=== PATIENT | male | born 1955 | race Caucasian/White ===

== ENCOUNTER 2021-01-20 07:50 | Outpatient (REF) | payer MEDICARE, SELFPAY ==
--- NOTE | 2021-01-20 13:26 | MHC.AU.AHA ---
Adult Audiological Evaluation Date of Visit: 01/20/21 Respite Worker Used: Not Applicable Reason for Appointment: Audiologic re-evaluation to monitor Jason's asymmetric high frequency hearing loss and determine if hearing thresholds have decreased. Jason was fit with binaural hearing aids by [facility] in 2016 and may be interested in obtaining new hearing aids. Medical consultation with an Securities Research Analyst was advised in 2019 when last tested at this office. Jason notes due to COVID-19, he had a Telemedicine appointment with Dr. Champ Colunga, but further testing and recommendations could not be provided at that time. Previous Hearing Test Results: 08/07/2019 [facility] Left ear - Normal hearing at 250 and 500 Hz, dropping to a moderately-severe to severe high frequency sensorineural hearing loss with 64% speech understanding at 75 dB HL. Right ear - Normal hearing at 250 and 500 Hz, precipitously dropping to a profound high frequency sensorineural hearing loss with 32% speech discrimination at 75 dB HL. Ear History: Bothersome Tinnitus/Ringing/Noises in Ears: Right Ear Ear used on the phone: Left Ear History of occupational noise exposure?: No: Recreationally plays drums in a band. 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 of the neck, Anemia, Aortic Valve Stenosis, Atrioventricular Block, Pacemaker Medication List: Multivitamin and Fish Oil Hearing Instrument History- Right Ear: Grid Maker: OtPhotoTLC Model: OPN 1 mini RITE Serial Number: [id number] Battery Size: 312 Repair Warranty: Dispensed By: [facility] Date of Fittin Hearing Instrument History- Left Ear: Grid Maker: Oticon Model: OPN 1 mini RITE Serial Number: [id number] Battery Size: 312 Warranty: Dispensed By: [facility] Date of Fittin Otoscopy: Right Ear: Unremarkable Left Ear: Unremarkable Tympanometry: Tympanometry not performed today as previous test results have consistently indicated normal middle ear function Hearing Evaluation: Transducer(s) Used: Insert Earphones Bone Conduction Method: Conventional Audiometry Stimuli Used: Pure Tones Right Ear: Description of Hearing: Normal hearing thresholds at 250 and 500 Hz, precipitously dropping to a profound high frequency sensorineural hearing loss Left Ear: Description of Hearing: Normal hearing thresholds at 250 and 500 Hz, dropping to a moderately-severe to severe high frequency sensorineural hearing loss Speech Recognition Threshold (SRT): Method Used: Monitored Live Voice Stimuli Used: Spondee Words Right Ear: 30 dB HL Left Ear: 25 dB HL Word Discrimination: Method: Recorded Lists Word Lists Used: NU-6 Right Ear: 52% at 75 dB HL Left Ear: 56% at 75 dB HL Comparison: Compared to most recent evaluation: Left ear thresholds overall are stable. Right ear thresholds at 750-1500 Hz have decreased 10-20 dB. Recommendations: - It is advised Jason schedule an in-office appointment with Dr. Colunga as the hearing thresholds for the right ear continue to decrease. - Hearing protection should be used when around loud noise. - Hearing aid maintenance performed today. - Hearing aid(s) reprogrammed with updated test results. - Discussed the newest Oticon hearing aid technology. If he would like to pursue new hearing aids from this office within the next six months, Jason may schedule a Hearing Aid Evaluation - Audiological re-evaluation in one year. Will send a reminder card. Diagnosis: Primary Diagnosis: H90.3 Bilateral Sensorineural Hearing Loss Secondary Diagnosis: H93.11 Tinnitus, Right Ear Services Performed: Comprehensive Audiological Evaluation (CPT 58270) Signature: Provider: Yamila Guthrie, [facility]
== END 2021-01-20 07:51 | disposition home or self-care (01) ==
LOC: HO.SH 07:50
PROVIDERS: Visit Provider Family Medicine
DX: H90.3 Sensorineural hearing loss, bilateral (principal); H93.11 Tinnitus, right ear
CPT/HCPCS: 92557

== ENCOUNTER 2021-01-27 08:23 | Outpatient (REF) | payer SELFPAY | END 2021-01-27 08:24 | disposition home or self-care (01) | LOC: HO.HAP 08:23 | PROVIDERS: Visit Provider Family Medicine | DX: Z13.89 Encounter for screening for other disorder (principal) ==

== ENCOUNTER 2021-04-15 15:20 | Outpatient (REF) | payer SELFPAY | END 2021-04-15 15:21 | disposition home or self-care (01) | LOC: HO.HAP 15:20 | PROVIDERS: Visit Provider Family Medicine | DX: Z13.89 Encounter for screening for other disorder (principal) ==

== ENCOUNTER 2021-04-20 13:21 | Outpatient (REF) | payer SELFPAY | END 2021-04-20 13:22 | disposition home or self-care (01) | LOC: HO.HAP 13:21 | PROVIDERS: Visit Provider Family Medicine | DX: Z13.89 Encounter for screening for other disorder (principal) ==

== ENCOUNTER 2021-08-03 10:18 | Outpatient (REF) | payer SELFPAY ==
--- NOTE | 2021-08-03 14:56 | MHC.AU.HFU ---
Hearing Instrument Follow-Up- Binaural Date of Visit: 08/03/21 Right Ear: Mission Coordinator: Oticon Model: More 1 miniRITE-T Serial Number: [id number] Repair Warranty: 06/18/2024 Loss and Damage Warranty: 06/18/2024 Battery Size: 312 Front Office Java Developer: 85 gain Type of Dome: open 10 mm Type of Wax Guard: Prowax minifit Dispensed By: [facility] Date of Fitting: Per Oticon, purchased 05/19/2021 Left Ear: Mission Coordinator: Oticon Model: More 1 miniRITE-T Serial Number: [id number] Repair Warranty: 06/18/2024 Loss and Damage Warranty: 06/18/2024 Battery Size: 312 Front Office Java Developer: 85 gain Type of Dome: 10 mm open Type of Wax Guard: Prowax minifit Dispensed By: [facility] Date of Fitting: Per Oticon, purchased 05/19/2021 Follow-Up Summary: Mr. Barnett has recently obtained new hearing aids at [facility], which he notes were covered in full by his health insurance company. He is transferring care of these new hearing aids to our clinic today. Hearing aid settings were saved in [place]. Increased gain for the speech frequencies 3761-5070 Hz by 3 steps. Re-arranged his programs, moving the ycdour-wp-nzlas program to the second position and the lecture program to the fourth position. He notes that he still has some trouble with background noise. In the More Sound Intelligence screen, changed the simple environment to one of the difficult settings and increased the Neural Noise Suppression for Difficulty environments to 10 dB. He reported good sound quality. Diagnosis Code(s): Primary Diagnosis: H90.3 Bilateral Sensorineural Hearing Loss Secondary Diagnosis: H93.13 Tinnitus, Bilateral Signature: Provider: Snow aFrnsworth, Yamila, CCC-A
== END 2021-08-03 10:19 | disposition home or self-care (01) ==
LOC: HO.HAP 10:18
PROVIDERS: Visit Provider Family Medicine
DX: Z46.1 Encounter for fitting and adjustment of hearing aid (principal); H90.3 Sensorineural hearing loss, bilateral; H93.13 Tinnitus, bilateral
CPT/HCPCS: V5011

== ENCOUNTER 2021-12-18 09:21 | Outpatient (REF) | payer SELFPAY ==
--- NOTE | 2021-12-18 12:10 | MHC.AU.HFU ---
Hearing Instrument Follow-Up- Binaural Date of Visit: 12/18/21 Right Ear: Security Incident Response Engineer: Oticon Model: More 1 miniRITE-T Serial Number: [id number] Repair Warranty: 06/18/2024 Loss and Damage Warranty: 06/18/2024 Battery Size: 312 Color: Silver Kaur Tiler: 85 gain Type of Dome: open 10 mm Type of Wax Guard: mini FIT ProWax Dispensed By: [facility] Date of Fitting: Per Oticon, purchased 05/19/2021 Left Ear: Security Incident Response Engineer: Oticon Model: More 1 miniRITE-T Serial Number: [id number] Repair Warranty: 06/18/2024 Loss and Damage Warranty: 06/18/2024 Battery Size: 312 Color: Silver Kaur Tiler: 85 gain Type of Dome: 10 mm open Type of Wax Guard: mini FIT ProWax Dispensed By: [facility] Date of Fitting: Per Oticon, purchased 05/19/2021 Follow-Up Summary: Patient was seen for hearing aid maintenance. Cleaned aids, vacuumed microphones, replaced domes, wax guards, and retention wires. Aids are in good working condition. Performed firmware update. Patient states that he is interested in demoing some different brands of hearing aids. He does a lot of research into hearing aids and is very techy, so is interested in a brand that offers more out of their dannielle, such as Jace. Also advised that he may like ReSound as well. He was welcomed to schedule a HAE to get set up with some demos if he'd like. Recommendations: Hearing instrument maintenance in 6 months, or sooner if needed. Please contact our clinic with any questions or concerns. Signature: Provider: Yamila Tran, CCC-A
== END 2021-12-18 09:22 | disposition home or self-care (01) ==
LOC: HO.HAP 09:21
PROVIDERS: Visit Provider Family Medicine
DX: Z13.89 Encounter for screening for other disorder (principal)

== ENCOUNTER 2022-02-05 14:24 | Outpatient (REF) | payer SELFPAY | END 2022-02-05 14:25 | disposition home or self-care (01) | LOC: HO.HAP 14:24 | PROVIDERS: Visit Provider Family Medicine | DX: Z13.89 Encounter for screening for other disorder (principal) ==

== ENCOUNTER 2022-03-30 07:33 | Day surgery (SDC) | payer MEDICARE, SELFPAY ==
[2022-03-24 20:28] VITALS: BMI 27.1
[2022-03-30 08:03] VITALS: BP 153/75; PULSE 71; RESP 16; TEMP 36.2; O2SAT 100
[2022-03-30] MEDS: Lactated Ringers 1,000 ML 50 ML IVCONT (08:16)
--- NOTE | 2022-03-30 09:03 | P.CONAN_ITS ---
[facility] Past Medical History Medical History Aortic stenosis BPH with elevated PSA Hearing loss Moderate mitral stenosis Non-Hodgkin lymphoma Pacemaker Sick sinus syndrome Surgical History Surgical History H/O splenectomy History of colonoscopy History of laparotomy History of lateral meniscus repair of left knee History of prostate surgery S/P left rotator cuff repair S/P placement of cardiac pacemaker History of Problems with Anesthesia: No Social History Social History Patient Tobacco Use Status: Never used Tobacco Use of substances other than those prescribed or required for medical reasons: Yes Substance Use Frequency: Monthly Are you DNR?: No Advance Directives: No Advance Directives Information Provided: Yes Advance Directives on File: No Recently lost weight without trying: No Nutrition Risks: No Nutritional Risk Meds Allergies Allergy/AdvReac Type Severity Reaction Status Date / Time No Known Allergies Allergy Unverified 03/20/20 16:44 [No Known Allergies*] Home Medications Medication Instructions Recorded Confirmed Last Taken Type multivitamin 1 tab PO DAILY 03/24/22 03/24/22 Unknown History omega 3-odi-qxj-fish oil 1,000 mg 1 cap PO DAILY 03/24/22 03/24/22 Unknown History (120 mg-180 mg) capsule (Fish Oil) saw palm 160 mg-vit E 100 1 tab PO DAILY 03/24/22 03/24/22 Unknown History unit-selen 100 ckg-olyu-emuojd-pygeum tablet (Prostate Health) Exam Exam Date and Time: March 30, 2022902 Height,Weight and Vital Signs: Height 5 ft 11 in Weight 88.451 kg Last Vital Signs Temp 97.1 F 03/30/22 08:03 Pulse 71 03/30/22 08:03 Resp 16 03/30/22 08:03 BP 153/75 H 03/30/22 08:03 Pulse Ox 100 03/30/22 08:03 O2 Del Method 03/30/22 08:03 Airway Mallampati Class: III TM Dist: >3cm Neck ROM: Full Loose/Missing/Broken Teeth: No Heart: RRR Lungs: CTA Assessment and Plan Assessment Anesthesia Assessment: Anesthesia Plan Discussed and Chart Reviewed Final Anesthetic Review History of Problems with Anesthesia: No NPO: Yes ASA Class: III Final Preanesthetic Review: Meds/Allgs Chart Reviewed, Consent Obtained/Reviewed and Anes Risks/Benef Reviewed Patient Risk: Intermediate Procedure Risk: Low Anesthetic Plan Anesthetic Plan: MAC: Disposition: Standard PACU
--- NOTE | 2022-03-30 09:12 | MHC.SHP ---
Pre-Procedural Eval Section A Date of Service: 03/30/22 The patient is an INPATIENT: No Changes since office visit: No Cold of Flu in the past 2 weeks, No New Medical Problems, No Changes in Medication and No Patient answered all questions The History & Physical has been completed within 30 days and I have reviewed it.: Yes Section B Chief Complaint: screening Allergies: Allergies Allergy/AdvReac Type Severity Reaction Status Date / Time No Known Allergies Allergy Unverified 03/20/20 16:44 [No Known Allergies*] Plan I have reviewed the history and physical and performed a pertinent physical examination on my patient. No changes have occurred unless specified.
--- NOTE | 2022-03-30 09:46 | PM.OP ---
Brief Operative Note Date of Service: 03/30/22 Pre-op diagnosis: screening Post-op diagnosis: same Procedure: colonoscopy Surgeon: Khari Maldonado Anesthesia: MAC Was an Chief Data Officer used for this Procedure?: No Estimated blood loss (mL): 5 Pathology: other Condition: stable Disposition: PACU
[2022-03-30 09:50] VITALS: BP 106/60; PULSE 76; RESP 16; TEMP 36.6; O2SAT 98
[2022-03-30 10:05] VITALS: BP 117/72; PULSE 64; RESP 16; TEMP 36.6; O2SAT 99
--- NOTE | 2022-03-30 10:09 | OP_ITS ---
SURGEON: Khari Maldonado MD INDICATIONS: Colon cancer screening and prior history of adenomatous colon polyps. PREOPERATIVE DIAGNOSIS: POSTOPERATIVE DIAGNOSIS: PROCEDURE PERFORMED: Colonoscopy to the terminal ileum with biopsy and snare polypectomy. ESTIMATED BLOOD LOSS: COMPLICATIONS: ANESTHESIA: Monitored anesthesia care. ASSISTANTS: SPECIMENS: DESCRIPTION OF PROCEDURE: DATE: 03/30/22 History and physical performed. The risks and benefits of the procedure were explained to the patient. Informed consent was obtained. The patient was placed in the left lateral decubitus position. A digital rectal exam was performed and was found to be normal. The Olympus pediatric video colonoscope was introduced into the rectum and advanced to the cecum without difficulty. The cecum was identified by transillumination, palpation, and identification of the ileocecal valve. Examination was performed. The scope was removed. He tolerated the procedure well and was returned to recovery area in stable condition. FINDINGS: The terminal ileum was examined and appeared normal. The visualized colonic mucosa was within normal limits without evidence of masses or ulcers. The quality of the prep was good. Two polyps were identified in the cecum was a less than 5 mm polyp, which was removed with biopsy forceps. At 80 cm was an 8 mm polyp, which was removed with a hot snare and recovered via suction. No other polyps were identified. Retroflexed examination showed moderate-sized internal hemorrhoids. IMPRESSION: Colon polyps. RECOMMENDATION: Follow up the biopsy results. MD KEYLA Borrero/MARCY / [id number] MTDD
== END 2022-03-30 10:29 | disposition home or self-care (01) ==
PROVIDERS: PCP Pediatrics; Visit Provider Internal Medicine Gastroenterology
PROC: 0DJD8ZZ Inspection of Lower Intestinal Tract, Via Natural or Artificial Opening Endoscopic (ICD-10-PCS; CPT 45378; principal; 2022-03-30 08:50)
DX: Z12.11 Encounter for screening for malignant neoplasm of colon (principal); Z86.010 Personal history of colon polyps; K63.5 Polyp of colon; K64.8 Other hemorrhoids; C85.90 Non-Hodgkin lymphoma, unspecified, unspecified site; Z92.3 Personal history of irradiation; Z90.81 Acquired absence of spleen; H90.5 Unspecified sensorineural hearing loss; N40.0 Benign prostatic hyperplasia without lower urinary tract symptoms; R97.20 Elevated prostate specific antigen [PSA]; I35.0 Nonrheumatic aortic (valve) stenosis; Z95.0 Presence of cardiac pacemaker; Z79.899 Other long term (current) drug therapy
CPT/HCPCS: 45385; 45380; 88305

== ENCOUNTER 2022-04-23 13:47 | Outpatient (REF) | payer SELFPAY ==
--- NOTE | 2022-04-23 15:50 | MHC.AU.HFU ---
Hearing Instrument Follow-Up- Binaural Date of Visit: 04/23/22 Traffic Rate Analyst Used: Right Ear: Oticon More 1 miniRITE-T SN: [id number] Color: Silver Kaur Repair Warranty: 06/18/2024 Loss and Damage Warranty: 06/18/2024 Battery Size: 312 Casket Assembler Metal: 85 gain Type of Mold: 10mm open dome Type of Wax Guard: miniFit ProWax Dispensed By: [facility] Date of Fitting: Per Oticon, purchased 05/19/2021 Left Ear: Oticon More 1 miniRITE-T SN: [id number] Color: Silver Kaur Repair Warranty: 06/18/2024 Loss and Damage Warranty: 06/18/2024 Battery Size: 312 Casket Assembler Metal: 85 gain Type of Mold: 10mm open dome Type of Wax Guard: miniFit ProWax Dispensed By: [facility] Date of Fitting: Per Oticon, purchased 05/19/2021 Follow-Up Summary: Jason returned to discuss his trial with [employer] Evolv AI 2400 LUIS ALFREDO hearing aids. He reported that he loved the Jace hearing aids, especially compared to his current Oticon devices. He preferred the overall sound quality, noise management, and phone dannielle functionality. He returned the loaners today and was hoping to trial Phonak's newest hearing aid; however, do not have Audeo Lumity demos in stock at this time. Jason reported that his insurance is changing and he is planning to purchase new hearing aids in the near future. Advised need for updated hearing test. He also wanted his Oticon hearing aids adjusted in the meantime as he reported loud sounds (e.g., ambulance siren, truck rumbling) are too loud. Increased compression ratios between moderate and loud sounds. Explained bqu-wou-kygezrm; however, Jason reported he was under the impression that the mmingupo-xe-waoy fee covered all services. Advised courtesy programming changes today; however, future appointments will incur fee. Recommendations: Please contact our clinic with any questions or concerns. Jason will obtain doctor's order for updated audiological evaluation. Following the hearing test, when he is ready to purchase new hearing aids, he will schedule an appointment for a hearing aid consultation to demo Phonak Audeo Lumity devices and make a decision between new Jace or Phonak hearing aids. Diagnosis Code(s):Primary Diagnosis: H90.3 Bilateral Sensorineural Hearing Loss Secondary Diagnosis: H93.13 Tinnitus, Bilateral Signature: Provider: Rob Hazel, [facility]
== END 2022-04-23 13:48 | disposition home or self-care (01) ==
LOC: HO.HAP 13:47
PROVIDERS: Visit Provider Family Medicine
DX: Z13.89 Encounter for screening for other disorder (principal)

== ENCOUNTER 2022-09-13 08:15 | Outpatient (REF) | payer OTHER, SELFPAY | END 2022-09-13 08:16 | disposition home or self-care (01) | LOC: HO.SH 08:15 | PROVIDERS: Visit Provider Family Medicine | DX: Z01.118 Encounter for examination of ears and hearing with other abnormal findings (principal); H90.3 Sensorineural hearing loss, bilateral | CPT/HCPCS: 92557; 92567 ==

== ENCOUNTER 2022-09-20 10:18 | Outpatient (REF) | payer SELFPAY ==
--- NOTE | 2022-09-20 13:07 | MHC.AU.HA3 ---
Hearing Instrument Follow-Up- Binaural Date of Visit: 09/20/22 Right Ear: Kedar, Model, Color, Serial Number: Oticon More 1 miniRITE-T SN: [id number] Color: Silver Kaur High Density Press Operator Repair Warranty: 06/18/2024 High Density Press Operator Loss and Damage Warranty: 06/18/2024 Battery Size: 312 Recovery Room Nurse/Slim Tube: 85 gain Earmold/Dome/CShell/SlimTip:10mm molina double vent dome Type of Wax Guard: miniFit ProWax Dispensed By: [facility] Date of Fitting: Per Oticon, purchased 05/19/2021 Left Ear: Make, Model, Color, Serial Number: Oticon More 1 miniRITE-T SN: [id number] Color: Silver Kaur High Density Press Operator Repair Warranty: 06/18/2024 High Density Press Operator Loss and Damage Warranty: 06/18/2024 Battery Size: 312 Recovery Room Nurse/Slim Tube: 85 gain Earmold/Dome/CShell/SlimTip: 10mm molina double vent dome Type of Wax Guard: miniFit ProWax Dispensed By: [facility] Date of Fitting: Per Oticon, purchased 05/19/2021 Follow-Up Summary: Jason returned for programming adjustments following updated hearing evaluation on 09/13/2022. Updated firmware. Performed feedback product introduction manager and real ear settings. Real ear measurements with previous settings and current open dome were significantly underfit. Switched to molina double vent domes and reprogrammed with better match to target. Jason noted that real ear settings were too loud. Decreased to step 2 on automatic adaptation product introduction manager. Also increased compression ratios between moderate and loud sounds to ensure loud sounds (e.g., ambulance siren, truck rumbling) are not too loud. Jason noticed improvement in sound quality in office. Paid $90.00 Recommendations: An additional follow-up was scheduled to monitor progress. Diagnosis Code(s): Primary Diagnosis: H90.3 Bilateral Sensorineural Hearing Loss; Secondary Diagnosis: H93.13 Tinnitus, Bilateral Signature: Provider: Rob Hazel, [facility]
== END 2022-09-20 10:19 | disposition home or self-care (01) ==
LOC: HO.HAP 10:18
PROVIDERS: Visit Provider Family Medicine
DX: Z46.1 Encounter for fitting and adjustment of hearing aid (principal); H90.3 Sensorineural hearing loss, bilateral
CPT/HCPCS: V5020

== ENCOUNTER 2022-10-01 09:18 | Outpatient (REF) | payer SELFPAY ==
--- NOTE | 2022-10-01 11:33 | MHC.AU.HA3 ---
Hearing Instrument Follow-Up- Binaural Date of Visit: 10/01/22 Right Ear: Kedar, Model, Color, Serial Number: Oticon More 1 miniRITE-T SN: [id number] Color: Silver Kaur Will Call Order Clerk Repair Warranty: 06/18/2024 Will Call Order Clerk Loss and Damage Warranty: 06/18/2024 Battery Size: 312 Turnstile Collector/Slim Tube: 85 gain Earmold/Dome/CShell/SlimTip:10mm open molina dome Type of Wax Guard: miniFit ProWax Dispensed By: [facility] Date of Fitting: Per Oticon, purchased 05/19/2021 Left Ear: Kedar, Model, Color, Serial Number: Oticon More 1 miniRITE-T SN: [id number] Color: Silver Kaur Will Call Order Clerk Repair Warranty: 06/18/2024 Will Call Order Clerk Loss and Damage Warranty: 06/18/2024 Battery Size: 312 Turnstile Collector/Slim Tube: 85 gain Earmold/Dome/CShell/SlimTip: 10mm open molina dome Type of Wax Guard: miniFit ProWax Dispensed By: [facility] Date of Fitting: Per Oticon, purchased 05/19/2021 Follow-Up Summary: Jason reported that since the real ear measurements/adjustments were completed at the last appointment, he is hearing incredibly better. He noticed the television volume is significantly lower and he does not need to rewind or rewatch portions of a program nearly as often as he previously did. However, he did switch back to 10mm open molina domes due to significant occlusion effect that he could not adjust to. Since then, he has noticed more feedback from the right ear. Did not change acoustics in Genie to account for dome change as Jason was otherwise happy with the sound quality. Reran feedback analyzer. Decreased adaptation manager requirements to step one, as Jason reportedly turns down the hearing aids 2-3 clicks everyday. Discussed balance between comfort and speech intelligibility. Also increased compression ratios more between moderate and loud sounds at Jason's request. Program 2 (laijzv-rt-ebaou) and Program 3 (Music) have been great. He does not use Program 4 (Lecture) very often. Jason also reported that he tried More SoundBooster via the [employer] dannielle while watching television but did not notice any difference. Recommended trying to use again in noisier environment . Jason is still considering new hearing aids and is in the process of working with his insurance to find a provider through [employer]. Recommendations: Hearing instrument follow-up or maintenance as needed. Please contact our clinic with any questions or concerns. Diagnosis Code(s): Primary Diagnosis: H90.3 Bilateral Sensorineural Hearing Loss Signature: Provider: Rob Hazel, [facility]
== END 2022-10-01 09:19 | disposition home or self-care (01) ==
LOC: HO.HAP 09:18
PROVIDERS: Visit Provider Family Medicine
DX: Z13.89 Encounter for screening for other disorder (principal)

== ENCOUNTER 2023-03-08 07:55 | Outpatient (REF) | payer SELFPAY ==
--- NOTE | 2023-03-08 12:49 | MHC.AU.HA3 ---
Hearing Instrument Follow-Up- Binaural Date of Visit: 03/08/23 Right Ear: Make, Model, Color, Serial Number: Kavin Reyna L90-R SN: [id number] Color: Black Battery Size: Rechargeable Lead Producer/Slim Tube: 3M Earmold/Dome/CShell/SlimTip:Oticon 10mm open molina dome Type of Wax Guard: CeruSheild Dispensed By: [facility] Left Ear: Make, Model, Color, Serial Number: Kavin Reyna L90-R SN: [id number] Color: Black Battery Size: Rechargeable Lead Producer/Slim Tube: 3M Earmold/Dome/CShell/SlimTip: Oticon 10mm open molina dome Type of Wax Guard: CeruShield Dispensed By: [facility] Follow-Up Summary: Jason recently purchased new hearing aids through his insurance benefit via [email or web address] at [facility] in [place]. He has only had this pair for one week and is still in the trial period. Real ear measures were reportedly not completed and Jason wanted to ensure his settings were appropriate for his hearing loss. Jason was using a large closed dome; however, he reported that he could not acclimate to his own voice, chewing, etc. Tried a Phonak open dome but too much feedback. Switched to an Oticon 10mm open molina dome which fit Phonak sheet sorter - some feedback but Jason was much happier with sound quality. Ran real ear measures. Good match to target until about 2 kHz. Occlusion compensation set to strong. Decreased to 90% gain level and increased compression ratios at Jason's request. Jason noted that the sound quality was more natural and he was happier with the overall clarity. Scheduled a follow up in 2-3 weeks as today's appointment was rushed at the end due to initial equipment issues (trouble connecting hearing aids and issues with real ear equipment bluetooth connection/battery power). Paid $90.00. Recommendations: An additional follow-up was scheduled to monitor progress. Diagnosis Code(s): Primary Diagnosis: H90.3 Bilateral Sensorineural Hearing Loss Signature: Provider: Rob Hazel, [facility]
== END 2023-03-08 07:56 | disposition home or self-care (01) ==
LOC: HO.HAP 07:55
PROVIDERS: Visit Provider Family Medicine
DX: Z46.1 Encounter for fitting and adjustment of hearing aid (principal); H90.3 Sensorineural hearing loss, bilateral
CPT/HCPCS: V5020

== ENCOUNTER 2023-06-09 07:51 | Outpatient (REF) | payer SELFPAY ==
--- NOTE | 2023-06-09 09:20 | MHC.AU.HA3 ---
Hearing Instrument Follow-Up- Binaural Date of Visit: 06/09/23 Right Ear: Make, Model, Color, Serial Number: Oticon REAL 1 miniRITE-R [id number] Color: Black Battery Size: Rechargeable Lathe Spotter/Slim Tube: 3/85 Earmold/Dome/CShell/SlimTip:10mm open molina dome with retention tail Type of Wax Guard: miniFit Dispensed By: [employer] Left Ear: Make, Model, Color, Serial Number: Oticon REAL 1 miniRITE-R [id number] Color: Black Battery Size: Rechargeable Lathe Spotter/Slim Tube: 385 Earmold/Dome/CShell/SlimTip: 10mm open molina dome with retention tail Type of Wax Guard: miniFit Dispensed By: [employer] Follow-Up Summary: Jason ended up returning the [employer]ak Lumitys and purchasing new Oticon REAL hearing aids (and TV adapter) from [employer] through his [employer] insurance benefit. He also purchased a SmartCharger and ConnectClip from [employer] When initially connected the REALs to [employer], the right hearing aid had 4 programs and the left hearing aid only had 1 program - seems like they were, at some point, not programmed together. Speech rescue was also enabled possibly contributing to the lisping sound quality that Jason has noticed. Transferred exact More settings to [employer]. Jason noticed immediate improvement in sound quality. Ran real ear measures. Slightly underfit at AM 1. Tried to increase to AM 3; however, too much feedback likely from significant cerumen. Ran feedback analyzer but cut out too much amplification. Set to AM 2 for now. Decreased CRs and increased Sudden Sound Stabilizer at Jason's request. Recommend follow up with PCP for wax removal and return to run feedback analyzer after wax removal. Jason also reported streaming from his ConnectClip is intermittent and often drops from one hearing aid - re-paired hearing aids to ConnectClip now that they are reprogrammed as binaural pair. Possibly dropping the streaming signal from one hearing aid as they initially seemed not to be programmed as a pair. Jason is getting heart surgery in one week. He will call to schedule a follow up for these programming changes at the beginning of the new year. Paid $90.00. Jason initially thought there would be no charge today as he paid for the programming of the Lumitys. Discussed that this appointment was not a follow up for the Lumitys - it is reprogramming a whole new hearing aid. However, there will be no charge for one additional follow up related to this programming. Recommendations: Hearing instrument follow-up or maintenance as needed. Please contact our clinic with any questions or concerns. Patient will call if problems persist. Diagnosis Code(s): Primary Diagnosis: H90.3 Bilateral Sensorineural Hearing Loss Signature: Provider: Rob Hazel, [facility]
== END 2023-06-09 07:52 | disposition home or self-care (01) ==
LOC: HO.HAP 07:51
PROVIDERS: Visit Provider Family Medicine
DX: Z46.1 Encounter for fitting and adjustment of hearing aid (principal); H90.3 Sensorineural hearing loss, bilateral
CPT/HCPCS: V5020

== ENCOUNTER 2024-04-13 08:22 | Outpatient (REF) | payer SELFPAY ==
--- NOTE | 2024-04-13 14:10 | MHC.AU.HA3 ---
Hearing Instrument Follow-Up- Binaural Date of Visit: 04/13/24 Right Ear: Kedar, Model, Color, Serial Number: Oticon REAL 1 miniRITE-R [id number] Color: Black Gymnastics Coach Repair Warranty: Gymnastics Coach Loss and Damage Warranty: [facility] Service Plan: n/a Battery Size: Rechargeable Cloth Burler/Slim Tube: 3/85 Earmold/Dome/CShell/SlimTip:10mm open molina dome with retention tail Type of Wax Guard: miniFit Dispensed By: [employer] [facility] Date of Fitting: Left Ear: Make, Model, Color, Serial Number: Oticon REAL 1 miniRITE-R [id number] Color: Black Gymnastics Coach Repair Warranty: Gymnastics Coach Loss and Damage Warranty: [facility] Service Plan: n/a Battery Size: Rechargeable Cloth Burler/Slim Tube: 3/85 Earmold/Dome/CShell/SlimTip: 10mm open molina dome with retention tail Type of Wax Guard: miniFit Dispensed By: [employer] [facility] [employer] Date of Fitting: Follow-Up Summary: Jason is here to have hearing aids checked, wonders if they need a firmware update, would like gain increased 2-8kHz. Cleaned and checked aids, ran through dehumidifier; replaced domes, wax guards, and tails. Listening check positive right and left. Firmware update completed. It was previously noted that gain was limited due to risk of feedback possibly related to cerumen. Otoscopy reveals clear canals Au. Ran feedback invasive manager, no improvement. Advised Jason that gain cannot be increased as requested for the right due to possible feedback, increased gain slightly left at pt. request. Discussed solutions including closed dome. Jason reports trying closed dome previously and could not tolerate occlusion effect, he prefers to keep things as they are at this time. Recommendations: Recommendations: Hearing instrument follow-up or maintenance as needed. Diagnosis Code(s): Primary Diagnosis: H90.3 Bilateral Sensorineural Hearing Loss Signature: Provider: Rob Briones, [facility]
== END 2024-04-13 08:23 | disposition home or self-care (01) ==
LOC: HO.HAP 08:22
PROVIDERS: Visit Provider Family Medicine
DX: Z46.1 Encounter for fitting and adjustment of hearing aid (principal); H90.3 Sensorineural hearing loss, bilateral
CPT/HCPCS: 92593

== ENCOUNTER 2024-10-28 13:55 | Emergency (ER) | payer OTHER, SELFPAY ==
[2024-10-28 14:06] VITALS: BP 151/90; PULSE 76; RESP 19; TEMP 36.6; O2SAT 98; BMI 27.9
--- NOTE | 2024-10-28 14:22 | ED.GENADULT ---
HPI - General Adult General Chief complaint: Ear Problems Stated complaint: something stuck in ear Time Seen by Provider: 10/28/24 14:21 Source: patient Mode of arrival: ambulatory Limitations: no limitations History of Present Illness ED Provider: Edgardo Mancini HPI narrative: 69 yold male presents to the ED for ear bud stuck in left ear. 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 and the plastic peice got stuck in left ear Related Data Home Medications ?Medication ?Instructions ?Recorded ?Confirmed multivitamin 1 tab PO DAILY 03/24/22 03/24/22 omega 5-puk-njw-fish oil 1,000 mg 1 cap PO DAILY 03/24/22 03/24/22 (120 mg-180 mg) capsule (Fish Oil) saw palm 160 mg-vit E 100 1 tab PO DAILY 03/24/22 03/24/22 unit-selen 100 oao-mzid-dnkfug-pygeum tablet (Prostate Health) Allergies Allergy/AdvReac Type Severity Reaction Status Date / Time No Known Allergies Allergy Verified 10/28/24 14:07 [No Known Allergies*] Review of Systems Review of Systems: LEft ear foreign body Yes all other systems are reviewed and are negative PMFSH Past Medical History Medical History Aortic stenosis BPH with elevated PSA Hearing loss Moderate mitral stenosis Non-Hodgkin lymphoma Pacemaker Sick sinus syndrome Surgical History H/O splenectomy History of colonoscopy History of laparotomy History of lateral meniscus repair of left knee History of prostate surgery S/P left rotator cuff repair S/P placement of cardiac pacemaker Social History Social History Patient Tobacco Use Status: Never used Tobacco Advance Directives: No Advance Directives Information Provided: No Do you have a plan to hurt others: No Plan Physical Exam ED Vital Signs: Vital Signs - 24 hr 10/28/24 14:06 Temperature 98 F Pulse Rate 76 Respiratory Rate 19 Blood Pressure 151/90 H Pulse Oximetry 98 BMI result Body Mass Index 27.9 Const General: cooperative, healthy appearing, comfortable, no acute distress, well developed, alert, awake and Physically active Orientation/consciousness: patient oriented x3 HENMT Head: Yes normal to inspection, Yes No palpable skull fracture present, Yes normocephalic, Yes atraumatic, Yes abrasion, Yes Acrocyanosis present and Yes Sloan's sign Ears: hearing grossly normal bilaterally, external ears normal, TM's normal bilaterally, TM normal on the right, TM normal on the left and Abnormal EAC present foreign body (plastic ear piece in left ear) Eyes General: appearance normal, both eyes and all related structures Neck Neck: Yes normal visual inspection, Yes full ROM, Yes no lymphadenopathy, Yes no meningeal signs, Yes trachea midline, Yes supple, No anterior neck swelling and No tender Chest Chest palpation & inspection: normal inspection of the chest and normal palpation of entire chest wall Resp Effort & Inspection: normal respiratory effort and able to speak in complete sentences Auscultation: clear to auscultation bilaterally Cardio Jugular venous distension: no JVD Heart sounds: S1 normal heart sound present and S2 normal heart sound present GI Inspection: Yes normal to inspection Palpation (GI): Soft to palpation, not firm, nontender, no guarding and not rigid General: Yes no CVA tenderness Back/Spine/Pelvis Back: no CVA tenderness and No back tenderness Skin General skin exam: no rashes or lesions noted, elasticity normal and turgor normal Neuro General: patient oriented x3, gait normal, tone normal, moves all extremities, Normal light touch and pain sensation, no meningeal signs, no focal motor deficits, CN's II-XI intact bilaterally and normal sensation to monofilament Extrem General: Yes normal to inspection, No full ROM and Yes capillary refill normal Psych Appearance: grossly normal, well kempt and not disheveled Medical Decision Making Medical Decision Making MDM Narrative: 69-year-old male presents to ED for ear piece in left ear that is stuck. 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 Patient states this occurred 1 hour ago. Patient denies any pain or loss of hearing. Foreign body removed in triage. No signs of puncture of tympanic membrane. Patient explained worrisome signs informed to return to the ED immediately. Patient informed to follow up with PCP. Differential Diagnosis Differential Diagnoses: The differential diagnosis associated with the presentation includes (Otitis media otitis externa) Admission/Observation Consideration of admission/observation: Escalation of care including admission/observation considered Independent Historian Clinical information obtained from an independent historian. History obtained from or confirmed by: Other (patient) Prescription Management I considered prescription management with: Other Discharge Plan Discharge Clinical Impression: Ear foreign body Patient Disposition: Home, Self-Care Instructions: Ear Foreign Body (ED) Additional Instructions: Return to the ED immediately for any ear pain, ear drainage, redness, fever, chills, loss of hearing, dizziness, nausea, vomiting, headache, or any other concerning symptoms. Prescriptions: No Action multivitamin Tablet 1 tab PO DAILY omega 6-sqz-mvt-fish oil [Fish Oil] 1,000 mg (120 mg-180 mg) Capsule 1 cap PO DAILY Prostate Health 160-100-100 mg-unit-mcg Tablet 1 tab PO DAILY Stand Alone Forms: Work/School Release Interventions: ED Discharge Assessment Last Done: 10/28/24 14:47 Discharge Date/Time: 10/28/24 14:47 Print Language: Bahraini
--- OUTSIDE RECORDS SUMMARY | 2024-10-28 14:30 | XMS_ITS | Encounter Summary ---
Author Organization [facility] Address [address] [place] [address] Care Team Providers Care Diathermy Equipment Repairer Name Role Phone Layo Gay MD Unavailable Westley Rehman MD Unavailable [phone] Luis Rojo MD Unavailable Bishnu Meza MD Primary Care Provider [phone] Encounter Details Date Type Department Care Team (Late st Contact Info) Description 07/22/2023 Scanned Document [facility] Cardiothoracic Surgery [address] [place] [address] Cardiology, Scan Social History Tobacco Use Types Packs/Day Years Used Date Smoking Tobacco: Never Passive Smoke Exposure: Never Smokeless Tobacco: Never Alcohol Use Standard Drinks/Week Comments Yes 6 (1 standard drink = 0.6 oz pure alcohol) Current alcohol use is 4-6 beers per week - social drinker [facility] Utilities Answer Date Recorded In the past 12 months has [employer], gas, oil, or water [employer] threatened to shut off services in your home? No 06/18/2023 AUDIT-C Answer Date Recorded Q1: How often do you have a drink containing alc ohol? 2-3 times a week 06/02/2023 Q2: How many drinks containi ng alcohol do you have on a typical day when you are drinking? 1 or 2 06/02/2023 Q3: How often do you have si x or more drinks on one occasion? Never 06/02/2023 Hunger Vital Sign Answer Date Recorded Within the past 12 months, y ou worried that your food would run out before you got the money to buy more. Never true 06/18/20 Within the past 12 months, t he food you bought just didn't last and you didn't have money to get more. Never true 06/18/2023 PRAPARE - Transportation Answer Date Re corded In the past 12 months, has l ack of transportation kept you from medical appointments or from getting medications? No 06/03 In the past 12 months, has l ack of transportation kept you from meetings, work, or from getting things needed for daily living? No 06/18/2023 Housing Stability Vital Sign Answer Jordon e Recorded In the last 12 months, was t here a time when you were not able to pay the mortgage or rent on time? No 06/18/2023 In the last 12 months, how many places have you lived? 1 06/18/2023 In the last 12 months, was t here a time when you did not have a steady place to sleep or slept in a alf (including now)? No 06/18/2023 Sex and Gender Information Value Date Recorded Sex Assigned at Male 04/19/2023 4:43 PM EDT Legal Sex Male 12:42 PM EDT Gender Identity Male 04/19/2023 4:43 PM EDT Sexual Orientation Heterosexual (straight) 04/19 4:43 PM EDT documented as of this encounter Plan of Treatment Not on file documented as of this encounter Visit Diagnoses Not on filedocumented in this encounter Care Teams Diathermy Equipment Repairer Relationship Specialty Start Date End Date Bishnu Meza MD [address] [place] [address] PCP - General Family Medicine 06/07/23 Layo Gay MD [address] [place] [address] Litigator Cardiovascular Disease 04/19/23 Westley Rehman MD [address] [place] [address] Medical Support Specialist Cardiovascular Disease 05/12/23 Luis Rojo MD [address] [place] [address] Litigator Cardiovascular Disease 05/12/23 Ismael Meza [address] [place] [address] Primary Care Provider General Medicine 05/10/23 documented as of this encounter
--- OUTSIDE RECORDS SUMMARY | 2024-10-28 14:30 | XMS_ITS | Encounter Summary ---
Author Organization [facility] Address [address] [place] [address] Care Team Providers Care User Interface Artist Name Role Phone Layo Gay MD Unavailable [phone] Pcp, No Primary Care Provider Unavailabl e Bishnu Meza MD Primary Care Provider Westley Rehman MD Unavailable [phone] Luis Rojo MD Unavailable Bishnu Meza MD Primary Care Provider [phone] Encounter Details Date Type Department Care Team (Late st Contact Info) Description 04/08/2023 Scanned Document [address] [facility] [address] [place] [phone] Cardiology, Scan Social History Tobacco Use Types Packs/Day Years Used Date Smoking Tobacco: Never Assessed Sex and Gender Information Value Date Recorded Sex Assigned at Male 04/19/2023 4:43 PM EDT Legal Sex Male 12:42 PM EDT Gender Identity Male 04/19/2023 4:43 PM EDT Sexual Orientation Heterosexual (straight) 04/19 4:43 PM EDT documented as of this encounter Plan of Treatment Not on file documented as of this encounter Procedures Procedure Name Priority Date/Time Associated Diagnosis Comments ECG 12-LEAD 04/08/2023 documented in this encounter Results * ECG 12-LEAD (04/08/2023) us Scan Cardiology ECG ORDERABLES Final Result documented in this encounter Visit Diagnoses Not on filedocumented in this encounter Care Teams User Interface Artist Relationship Specialty Start Date End Date Pcp, No PCP - General General Medicine 04/19/23 05/09/23 Bishnu Meza MD [address] [place] [address] PCP - General Family Medicine 05/10/23 06/01/23 Bishnu Meza MD [address] [place] [address] PCP - General Family Medicine 06/07/23 Layo Gay MD [address] [place] [address] Parts Designer Cardiovascular Disease 04/19/23 Westley Rehman MD [address] [place] [address] [address] [place] [address] Control Officer Cardiovascular Disease 05/12/23 Luis Rojo MD [address] [place] [address] Parts Designer Cardiovascular Disease 05/12/23 Ismael Meza [address] [place] [address] Primary Care Provider General Medicine 05/10/23 documented as of this encounter
--- OUTSIDE RECORDS SUMMARY | 2024-10-28 14:30 | XMS_ITS | Encounter Summary ---
Author Organization [facility] Address [address] [place] [address] Care Team Providers Care Occupational Therapy Professor Name Role Phone Layo Gay MD Unavailable Pcp, No Primary Care Provider Unavailabl e Bishnu Meza MD Primary Care Provider Westley Rehman MD Unavailable [phone] Luis Rojo MD Unavailable Bishnu Meza MD Primary Care Provider Encounter Details Date Type Department Care Team (Late st Contact Info) Description 12/20/2022 Scanned Document [facility] Heart & Vascular [place] [facility] - Cardiac Catheterization Laboratory [address] [place] [phone] Primary Care, Scan Social History Tobacco Use Types Packs/Day [...] on filedocumented in this encounter Care Teams Occupational Therapy Professor Relationship Specialty Start Date End Date Pcp, No PCP - General General Medicine 04/19/23 05/09/23 Bishnu Meza MD [address] [place] [address] PCP - General Family Medicine 05/10/23 06/01/23 Bishnu Meza MD [address] [place] [address] PCP - General Family Medicine 06/07/23 Layo Gay MD [address] [place] [address] Press Setter Cardiovascular Disease 04/19/23 [place] [address] [place] [address] [address] [place] [address] Brand Marketing Specialist Cardiovascular Disease 05/12/23 Luis Rojo MD [address] [place] [address] Press Setter Cardiovascular Disease 05/12/23 Ismael Meza [address] [place] [address] Primary Care Provider General Medicine 05/10/23 documented as of this encounter
--- OUTSIDE RECORDS SUMMARY | 2024-10-28 14:30 | XMS_ITS | Encounter Summary ---
Author Organization [facility] Address [address] [place] [address] Care Team Providers Care Garment Liner Name Role Phone Layo Gay MD Unavailable Pcp, No Primary Care Provider Unavailabl e Bishnu Meza MD Primary Care Provider Westley Rehman MD Unavailable [phone] Luis Rojo MD Unavailable Bishnu Meza MD Primary Care Provider Encounter Details Date Type Department Care Team (Late st Contact Info) Description 04/18/2023 Scanned Document [address] [place] [phone] Cardiology, Scan Social History Tobacco Use Types [...] on filedocumented in this encounter Care Teams Garment Liner Relationship Specialty Start Date End Date Pcp, No PCP - General General Medicine 04/19/23 05/09/23 Bishnu Meza MD [address] [place] [address] PCP - General Family Medicine 05/10/23 06/01/23 Bishnu Meza MD [address] [place] [address] PCP - General Family Medicine 06/07/23 Layo Gay MD [address] [place] [address] Former Hand Cardiovascular Disease 04/19/23 Westley Rehman MD [address] [place] [address] [address] [place] [address] Hog Raiser Cardiovascular Disease 05/12/23 Luis Rojo MD [address] [place] [address] Former Hand Cardiovascular Disease 05/12/23 Ismael Meza [address] [place] [address] Primary Care Provider General Medicine 05/10/23 documented as of this encounter
--- OUTSIDE RECORDS SUMMARY | 2024-10-28 14:30 | XMS_ITS | Encounter Summary ---
Author Organization [facility] Address [address] [place] [address] Care Team Providers Care Family Intervention Specialist Name Role Phone Layo Gay MD Unavailable Westley Rehman MD Unavailable [phone] Luis Rojo MD Unavailable Bishnu Meza MD Primary Care Provider [phone] Encounter Details Date Type Department Care Team (Late st Contact Info) Description 12/03/2023 Mobile [facility] Heart & Vascular [place] at [facility] - Echocardiography Laboratory [address] [place] [phone] Rigoberto Anand MD [address] [place] [address] Social History Tobacco Use Types Packs/Day Years Used Date Smoking Tobacco: Never Passive Smoke Exposure: Never Smokeless Tobacco: Never Alcohol Use Standard Drinks/Week Comments Yes 6 (1 standard drink = 0.6 oz pure alcohol) Current alcohol use is 4-6 beers per week - social drinker [facility] Utilities Answer Date Recorded In the past 12 months has [employer], gas, oil, or water [email or web address] threatened to shut off services in your [...] money to buy more. Never true 06/18/20 23 Within the past 12 months, t he [...] place to sleep or slept in a long term (including now)? No 06/18/2023 Sex and Gender [...] on filedocumented in this encounter Care Teams Family Intervention Specialist Relationship Specialty Start Date End Date Bishnu Meza MD [address] [place] [address] PCP - General Family Medicine 06/07/23 Layo Gay MD [address] [place] [address] Concrete Mixer Loader Truck Mounted Cardiovascular Disease 04/19/23 Westley Rehman MD [address] [facility] [address] [place] [address] Service Mechanic Cardiovascular Disease 05/12/23 Luis Rojo MD [address] [place] [address] Concrete Mixer Loader Truck Mounted Cardiovascular Disease 05/12/[address] [address] Primary Care Provider General Medicine 05/10/23 documented as of this encounter
--- OUTSIDE RECORDS SUMMARY | 2024-10-28 14:30 | XMS_ITS | Encounter Summary ---
Author Organization [facility] Address [address] [place] [address] Care Team Providers Care [employer] Financials Developer Name Role Phone Layo Gay MD Unavailable Pcp, No Primary Care Provider Unavailabl e Bishnu Meza MD Primary Care Provider Westley Rehman MD Unavailable [phone] Luis Rojo MD Unavailable Bishnu Meza MD Primary Care Provider Encounter Details Date Type Department Care Team (Late st Contact Info) Description 04/19/2023 Scanned Document [address] [place] [phone] Cardiology, Scan Social History Tobacco Use Types [...] on filedocumented in this encounter Care Teams [employer] Developer Relationship Specialty Start Date End Date Pcp, No PCP - General General Medicine 04/19/23 05/09/23 Bishnu Meza MD [address] [place] [address] PCP - General Family Medicine 05/10/23 06/01/23 Bishnu Meza MD [address] [place] [address] PCP - General Family Medicine 06/07/23 Layo Gay MD [address] [place] [address] Internal Control Analyst Cardiovascular Disease 04/19/23 Westley Rehman MD [address] [place] [address] [address] [place] [address] Head Porter Cardiovascular Disease 05/12/23 Luis Rojo MD [address] [place] [address] Internal Control Analyst Cardiovascular Disease 05/12/23 Ismael Meza [address] [place] [address] Primary Care Provider General Medicine 05/10/23 documented as of this encounter
--- OUTSIDE RECORDS SUMMARY | 2024-10-28 14:30 | XMS_ITS | Clinical Summary ---
Author Organization [facility] Address [address] [place] [id number] Care Team Providers Care Pad Extractor Tender Name Role Phone Layo Gay MD Unavailable Virginia Rehman MD Unavailable [phone] Luis Rojo MD Unavailable Bishnu Meza MD Primary Care Provider [phone] Allergies No known active allergies Medications Multiple Vitamin (MULTIVITAMIN ADULT PO) Take by mouth. Activ e Cromwell 3 1000 MG Cap capsule Take 1,000 mg by mouth daily. Administer whole. Do not break. Active atorvastatin (LIPITOR) 20 MG tabletIndicatio ns:S/P AVR (aortic valve replacement),S/ P MVR (mitral valve replacement) Take 1 tablet (20 mg total) by mouth nightly. 30 tablet 1 3 Active metoPROLOL SUCCINATE (TOPROL-XL) 25 MG 24 hr tabletIndicatio ns:S/P AVR (aortic valve replacement),S/ P MVR (mitral valve replacement) Take 1 tablet (25 mg total) by mouth daily. 30 tablet 1 3 Active Additional Information Patient taking differently:25 mg OralEvery morning, Reason: Other, Informant: Self, Reported on 07/26/2024 apixaban (ELIQUIS) 5 MG tablet Take 1 tablet (5 mg total) by mouth 2 (two) times a day. Active Active Problems Problem Noted Date Diagnosed Date S/P AVR (aortic valve replacement) on 06/17/2024 07/15/2023 S/P MVR (mitral valve replacement) on 06/17/2024 07/15/2023 S/P coronary artery bypass graft x 1 on 06/17/20 24 07/15/2023 Coronary artery disease with cardiac symptoms Nonrheumatic mitral valve stenosis 05/16/2023 Nonrheumatic tricuspid valve regurgitation 05/16 Coronary artery disease invo lving enterprise coronary artery of enterprise heart without angina pectoris 05/16/2023 Aortic valve stenosis 04/19/2023 Encounters Date Type Department Care Team Description 08/02/2024 1:02 PM EST Anesthesia Event [facility] [address] [place] [phone] Robin Baeza MD 08/02/2024 12:30 PM EST - 08/02/2024 2:11 PM EST Surgery [facility] [address] [place] [phone] Virginia Yi MD dual-chamber pacemaker GENERATOR CHANGE 08/02/2024 10:43 AM EST - 08/02/2024 3:50 PM EST Hospital Encounter [facility] [address] [place] [phone] Virginia Yi MD Bradycardia Discharge Disposition: Home or Self Care 08/02/2024 Travel 07/31/2024 Orders Only HH AMB INBD INTERFACE [address] [place] [address] ProviderUna MD from Last 3 Months Family History Medical History Relation Name Comments Hypertension Brother Cristino Barnett High blood pre ssure runs in the family, I've been monitoring mine and so far its been normal Prostate cancer Father Torres Barnett Did not pa ss away from it Relation Name Status Comments Brother Cristino Barnett Father Torres Barnett Social History Tobacco Use Types Packs/Day Years Used Date Smoking Tobacco: Never Passive Smoke Exposure: Never Smokeless Tobacco: Never Alcohol Use Standard Drinks/Week Comments Yes 6 (1 standard drink = 0.6 oz pure alcohol) Current alcohol use is 4-6 beers per week - social drinker [facility] Utilities Answer Date Recorded In the past 12 months has th e electric, gas, oil, or water company threatened to shut off services in your home? No 06/18/2023 AUDIT-C Answer Date Recorded Q1: How often do you have a drink containing alc ohol? Monthly or less 07/26/2024 Q2: How many drinks containi ng alcohol do you have on a typical day when you are drinking? 1 or 2 07/26/2024 Q3: How often do you have si x or more drinks on one occasion? Never 07/26/2024 Hunger Vital Sign Answer Date Recorded Within [...] place to sleep or slept in a correction (including now)? No 06/18/2023 Sex and Gender Information Value Date Recorded Sex Assigned at Male 04/19/2023 4:43 PM EDT Legal Sex Male 12:42 PM EDT Gender Identity Male 04/19/2023 4:43 PM EDT Sexual Orientation Heterosexual (straight) 04/19 4:43 PM EDT Last Filed Vital Signs Vital Sign Reading Time Taken Comments Blood Pressure 113/71 08/02/2024 3:30 PM EST Pulse 74 08/02/2024 3:30 PM EST Temperature 36.6 ??C (97.8 ??F) 08/02/2024 2:21 PM ES T Respiratory Rate 18 08/02/2024 3:30 PM EST Oxygen Saturation 98% 08/02/2024 3:30 PM EST Inhaled Oxygen Concentration - - Weight 91.9 kg (202 lb 8 oz) 08/02/2024 11:22 AM EST Height 180.3 cm (5' 11 ) 08/02/2024 11:22 AM EST Body Mass Index 28.24 08/02/2024 11:22 AM EST Plan of Treatment Health Maintenance Due Date Last Done Comments Hepatitis C Virus Screening 1955 DTaP/Tdap/Td Vaccines (1 - Tdap) 1972 Pneumococcal Vaccines 50+ (1 of 2 - PCV) 1972 Colonoscopy 1998 Zoster (Shingles) Vaccine (1 of 2) 10/26/2003 RSV Vaccine 60 years and older and Patients (1 - Risk 60-74 years 1-dose series) 2013 Influenza Vaccine 02/02/2024 COVID-19 Vaccine (2023- season) 2024 12/22/2021, 06/17/2021, 10/21/2020, Additional history exists Hepatitis B Vaccines Aged Out No long er eligible based on patient's age to complete this topic Medical Devices Implanted Type Area Sales Attendant Device Identifier Shelf Expiration Date Model / Serial / Lot Medtronic 5076 Capsurefix Novus Mri Surescan [id number] Implanted:09/2014 (Quantity not on file) Lead Medtronic 5076 CAPSUREFIX NOVUS MRI SURESCAN / [id number] / Medtronic 5076 Capsurefix Novus Mri Surescan [id number] Implanted:09/2014 (Quantity not on file) Lead Medtronic 5076 CAPSUREFIX NOVUS MRI SURESCAN / [id number] / Pacemaker Pacemaker Medtronic [id number] DR RAFAT GRAVES PACEMAKER / / Medtronic [id number] Advis[address] Yip [id number] Implanted:09/2014 (Quantity not on file) Explanted:Qty : 1 on 08/02/2024 by Virginia Yi MD Pacemaker Medtronic [id number] ADVISA DR YIP / [id number] / [id number] Pacemaker Cardiac 7.4mm 50.8x46.6mm [place] Xt Dr Rafat Graves - [id number] Implanted:Qty : 1 on 08/02/2024 by Virginia Yi MD at Pacemaker Left: Chest [employer] [id number] 11/14/2025 [id number] / [id number] / [id number] Valve Mitral 19mm 29mm 27mm Epic Flexfit Lp Porcine Pericard - [id number] Implanted:Qty : 1 on 06/17/2023 by Suleman Turner MD at [facility] Valve N/A: Heart [employer] - AN ABBOT [id number] 06/16/2026 [id number] / [id number] / Description:Serial number an d expiration date verified with POLITICAL SCIENCE CHAIR [id number] Valve Aortic Inspiris Resilia 23mm Bvn Pericard Magdalena Rbr Lflt - [id number] Implanted:Qty : 1 on 06/17/2023 by Suleman Turner MD at [facility] Valve N/A: Aorta Celeno MACY [id number] 03/16/2027 [id number] / [id number] / Description:No rinse require d per special needs tutor. Serial number and expiration date verified with [employer]IT[employer] SCIENCE [employer]. Procedures Procedure Name Priority Date/Time Associated Diagnosis Comments REMOVE/REPLACE GENERATOR PACEMAKER DUAL Routine 08/02/2024 2:21 PM EST Bradycardia XR CHEST 1 VIEW Routine 08/02/2024 2:06 PM EST PT/PTT (INCLUDES INR) Routine 07/31/2024 12:49 PM EST COMPLETE BLOOD COUNT, WITH DIFFERENTIAL Routine 07/31/2024 12:49 PM EST BASIC METABOLIC PANEL Routine 07/31/2024 12:49 PM EST from Last 3 Months Results * XR Chest 1 view (08/02/2024 2:06 PM EST) Anatomical Region Laterality Modality Chest Computed Radiogr aphy 08/03/2024 12:4 9 PM EST Impressions 08/03/2024 12:49 PM EST Fluoroscopy provided. Advise correlation with real-time fluoroscopic findings and procedural/operative note. Narrative 08/03/2024 12:49 PM EST XR CHEST 1 VIEW: 08/02/2024 12:19 PM CLINICAL HISTORY: Bradycardia. Bradycardia. FLUOROSCOPY INFORMATION: ?? Fluoro time:4.0 sec, Fluoro dose:3.2 ??mGy, ??Number of additional exposures: FINDINGS: Fluoroscopy was provided for a procedure without a radiologist present. Image(s) depict portions of the procedure and was/were submitted after the procedure was completed. Frontal image(s). Procedure Note Carlyle Cortez MD - 08/03/2024 XR CHEST 1 VIEW: 08/02/2024 12:19 PM CLINICAL HISTORY: Bradycardia. Bradycardia. FLUOROSCOPY INFORMATION: Fluoro time:4.0 sec, Fluoro dose:3.2 mGy,Number of additional exposures: FINDINGS: Fluoroscopy was provided for a procedure without a radiologist present.Image(s) depict portions of the procedure and was/were submitted after theprocedure was completed. Frontal image(s). IMPRESSION: Fluoroscopy provided. Advise correlation with real-time fluoroscopicfindings and procedural/operative note. Virginia Yi MD [facility] Final Result * (ABNORMAL) PT/PTT (INCLUDES INR) (07/31/2024 12:49 PM EST) [facility] Signature Partial Thromboplastin Time (PTT) 33(H) 23 - 32 sec [facility] [address] [facility] Comment: This test has not been validated for monitoring unfractionated heparin therapy. For testing that is validated for this type of therapy, please refer to the Heparin Anti-Xa assay (test code 75456). For additional information, please refer to http://education.Mobicious/faq/LVI451 (This link is being provided for informational/educational purposes only.) INR 1.[address] [facility] Comment: Reference Range ? 0.9-1.1 Moderate-intensity Warfarin Therapy 2.0-3.0 Higher-intensity Warfarin Therapy ?? 3.0-4.0 Prothrombin Time (PT) 10.8 9.0 - 11.5 sec [facility] [address] 0091 07/31/2024 12:4 9 PM EST 07/31/2024 12:50 PM EST Narrative [facility] - 08/01/2024 3:31 AM EST FASTING:NO FASTING: NO Ordered by External Provider. [id number], [place] YI, us External Provider LAB BLOOD ORDERABLES Final Result [facility] [address] [place] [address] * (ABNORMAL) Complete Blood Count, with Differential (07/31/2024 12:49 PM EST) White Blood Cell Count 8.0 3.8 - 10.8 Thousand/ uL [facility] Red Blood Cell Count 3.75(L) 4.20 - 5.80 Million/u L [facility] Hemoglobin 11.5(L) 13.2 - 17.1 g/dL [facility] Hematocrit 34.8(L) 38.5 - 50.0 % [facility] MCV 92.8 80.0 - 100.0 fL [facility] MCH 30.7 27.0 - 33.0 pg [facility] MCHC 33.0 32.0 - 36.0 g/dL [facility] Comment: For adults, a slight decrease in the calculated MCHC value (in the range of 30 to 32 g/dL) is most likely not clinically significant; however, it should be interpreted with caution in correlation with other red cell parameters and the patient's clinical condition. RDW 12.6 11.0 - 15.0 % [facility] Platelet Count 244 140 - 400 Thousand/ uL [facility] MPV 12.1 7.5 - 12.5 fL [facility] Abs Neutrophils Auto 3,920 1,500 - 7,800 cells/uL [employer] Abs Lymphocytes Auto 2,800 850 - 3,900 cells/uL [facility] [employer] Abs Monocytes Auto 992(H) 200 - 950 cells/uL [facility] [employer] Abs Eosinophils Auto 200 15 - 500 cells/uL [facility] [employer] Abs Basophils Auto 88 0 - 200 cells/uL [facility] [employer] Neutrophils Auto 49 % [facility] [employer] Lymphocytes Auto 35.0 % [facility] [employer] Monocytes Auto 12.4 % [facility] [employer] Eosinophils Auto 2.5 % [facility] [employer] Basophils Auto 1.1 % [facility] 07/31/2024 12:4 9 PM EST 07/31/2024 12:50 PM EST Narrative [facility] - 08/01/2024 3:31 AM EST FASTING:NO FASTING: NO Ordered by External Provider. [id number], [place] YI, External Provider MD LAB BLOOD ORDERABLES Final Result [facility] [address] [place] [phone] * BASIC METABOLIC PANEL (07/31/2024 12:49 PM EST) Glucose 89 65 - 139 mg/dL [facility] Comment: ? Non-fasting reference interval Blood Urea Nitrogen (BUN) 20 7 - 25 mg/dL [facility] Creatinine 1.11 0.70 - 1.28 mg/dL [facility] Creatinine w/ eGFR 71 > OR = 60 mL/min/1. 73m2 [facility] BUN/Creatinine Ratio SEE NOTE: 6 - 22 (calc) [facility] Comment: ?? Not Reported: BUN and Creatinine are within ?? reference range. ? Sodium 140 135 - 146 mmol/L [facility] Potassium 4.4 3.5 - 5.3 mmol/L [facility] Chloride 107 98 - 110 mmol/L [facility] CO2 26 20 - 32 mmol/L [facility] Calcium 9.3 8.6 - 10.3 mg/dL [facility] 07/31/2024 12:4 9 PM EST 07/31/2024 12:50 PM EST Narrative [facility] - 08/01/2024 3:31 AM EST FASTING:NO FASTING: NO Ordered by External Provider. [id number], [place] YI, External Provider LAB BLOOD ORDERABLES Final Result [facility] [address] [place] [address] from Last 3 Months Insurance [employer] MGD MEDICARE Advance Directives * Full Code (Latest Code Status on File) Date Activated Date Inactivated Comments 08/02/2024 2:08 PM * Full Code Date Activated Date Inactivated Comments 06/17/2023 3:43 PM 08/02/2024 10:43 AM * Full Code Date Activated Date Inactivated Comments 05/10/2023 11:50 AM 06/17/2023 5:36 AM Care Teams Pad Extractor Tender Relationship Specialty Start Date End Date Bishnu Meza MD [address] [place] [phone] PCP - General Family Medicine 06/07/23 Layo Gay MD [address] [place] [address], [place] [address] Legal Biller Cardiovascular Disease 04/19/23 Virginia Rehman MD [address] [facility] [address] [place] [address] Fisheries Specialist Cardiovascular Disease 05/12/23 Luis Rojo MD [address] [place] [address] Legal [facility] Cardiovascular Disease 05/12/23 Ismael Meza [address] [place] [address] Primary Care Provider General Medicine 05/10/23
--- OUTSIDE RECORDS SUMMARY | 2024-10-28 14:31 | XMS_ITS | Data Portability ---
Author Organization [place] [facility] Address [address] [place] [address] Care Team Providers Care Accounting Instructor Name Role Phone DIANA MORRELL Broom Builder YO DALY Primary Care Provider DANGELO NUNES Broom Builder MICHAEL HERNANDEZ OTHER Assessment Encounter Date Assessment Date Assessment LastModified by Organization Details LastModified Time 04/16/2024 04/16/2024 Interrogation of (MedZ[employer]it, Advisa): Normal functioning dual-chamber pacemaker. Date of implant: 03/07/15 Time to JIMI: 2 months Presenting rhythm: NSR RA/RV Lead Capture Thresholds and pacing impedances stable, within normal limits, consistent with prior interrogation. Bradycardia/atrial tachycardia settings: Mode (DDD), lower rate limit (60 bpm), upper tracking rate (150 bpm). AT/AF burden: none, no AF since December Events/Episodes: none Patient is V? p aced 26%, A? p aced 7%. No changes were made to the device. Follow-up: Routine Interrogation in 6 months. Patient will send MONTHLY remote checks- nearing JIMI [email or web address] Not available 04/16/2024 12:45:54 07/31/2024 07/31/2024 Mr Barnett is a 68 y.o male with history of aortic valve stenosis likely related to radiation treatment for non-Hodgkin's lymphoma, pacemaker, and mild mitral valve stenosis, history of AVR (bioprosthetic), MVR (bioprosthetic), CABG x 1 with vein graft to the RCA on 06/17/2023 and atrial flutter on Eliquis s/p cardioversion 11/2023 presenting to the office today for preoperative risk stratification for elective generator change on 08/02/[address] Yi. Vitals are stable in the office today. Stable weight. EKG demonstrates NSR with intermittent A pacing which is unchanged. Physical exam is notable for regular heart rate/rhythm. No significant murmur, rub or gallop. He has trace BLE edema but No overt volume overload on exam. Cardiac testing is up to date and stable without symptoms to suggest progressive coronary disease or congestive heart failure. Given history, physical exam, and clinical findings, I would place Mr Barnett at low cardiovascular risk for surgery. He should continue antihypertensive therapy perioperatively to avoid extreme fluctuation in HR and BP therefore further reducing risk for cardiovascular complication. He may hold Eliquis x3 days and should resume as soon as safely possible at the discretion of the surgeon. Please call the office with any questions or concerns. I will schedule post operative in office device check in about 8 weeks. He has follow up with Dr Morrell in September. [email or web address] Not available 07/31/2024 11:13:43 08/15/2024 08/15/2024 Jason is a 68-year-old man with a past medical history including aortic valve stenosis, mild mitral valve stenosis, status post bioprosthetic mitral and aortic valves, non-Hodgkin's lymphoma, status post radiation treatment, CABG x1 to the RCA in 06/2023, status post dual chamber pacemaker, who was referred by my colleague Dr. Morrell for assistance with management of his atrial flutter. ASSESSMENT AND PLAN 1. Atrial flutter. 2. s/p DDD Pacemaker 3. CAD s/p CABG 4. and MS s/p AVR/MVR Jason has a [id number] score of at least 2 (age, coronary disease) and is appropriately on apixaban 5 mg p.o. twice daily without bleeding complications. I was able to interrogate his dual-chamber pacemaker today in the office. Pacing and sensing parameters are stable. Ventricular sensing is improved at approximately 3.9. Thresholds were manually checked. No further arrhythmias since his cardioversion. His battery life is approximately 14 years. I turned on the atrial ATP feature. His wound is healing quite well. See photo in the physical exam section of this note. Plan: ? Continue current medical therapy including apixaban 5 mg p.o. twice daily ? Continue remote monitoring ? Annual follow up in the pacemaker clinic. I have personally spent 35 minutes total time today in preparation, patient care, and documentation for this visit, including the following: review of clinical lab tests; medication; review of medical tests/procedures/s ervices. [email or web address] Not available 08/15/2024 16:54:34 09/14/2024 09/14/2024 In summary, the patient is 68-year-old gentleman who has a history of aortic valve replacement secondary to aortic valve stenosis likely related to radiation treatment, CABG x 1 with vein graft to the RCA, pacemaker, paroxysmal atrial flutter. Overall, doing extremely well. He is asymptomatic. His rhythm is sinus. His pacemaker generator is changed. He infrequently ventricular paces and we reviewed that he is not pacemaker dependent. He will continue medical therapy with Eliquis in the context of paroxysmal atrial flutter. He remains on lipid therapy with atorvastatin. Of asked him to have his primary care doctor send us a copy of his most recent lipids. He should continue to take antibiotics prior to dental visits. We can see him in follow-up in 1 year. Thank you for allow me the opportunity to participate in the care of your patient. Please do not hesitate to contact me if there are any questions. [email or web address] Not available 09/14/2024 10:02:19 Plan of Treatment Reminders Order Date Submit Date Provider Last Modified By Organization Details Last Modified Time Details Appointments None recorded. Lab None recorded. Referral None recorded. Procedures None recorded. Surgeries None recorded. Imaging electrocar diogram 2024 025 [email or web address] , [address] [place], [address], 10:08:49 electrocar diogram 2024 025 [email or web address] [facility] , [address] [place], [address], 15:40:23 electrocar diogram 2024 025 [email or web address] 0 [facility], [address] [facility], [place], [address], 11:12:51 Medication Orders None recorded. Patient TargetsNo targets recorded. Patient Instructions Encounter Date Encounter Id Patient Instructions Last Modified By Organization Details Last Modified Time 07/31/2024 [id number] preoperative clearance* [email or web address] Not available 08/07/2024 09:47:02 Reason for Referral None Reported. Results Created Date Observation Date Name Description Value Unit Range Abnormal Flag Note LastModifiedBy Organization Detail LastModifiedTime 07/31/1907/31/2024 PROTH ROMBI N W/INR + PARTI AL THROM BOPLA STIN TIMES partial thromboplast in time, activated 33 sec 23-32 high This test has not been valid ated for monit oring unfra ction ated hepar in thera py. For testi ng that is valid ated for this type of thera py, castillo e refer to the Hepar in Anti- Xa assay (test code 70341 ). For addit ional infor castillo perez e refer to http: //[facility]her ortiz.Que stDia gnost ics.c om/fa q/FAQ 159 (This link is being provi ded for infor johnathan nal/e ducat iontk purpo ses only. ) Not Available [facility] [address], [address], 07/31/2024 16:28:21 07/31/19 25 07/31/2024 PROTH ROMBI N W/INR + PARTI AL THROM BOPLA STIN TIMES INR 1.0 normal Refer ence Range 0.9-1 .1 Moder ate-i ntens ity Warfa rin Thera py 2.0-3 .0 Highe r-int ensit y Warfa rin Thera py 3.0-4 .0 Not Available [facility] [address], [address], 07/31/2024 16:28:21 07/31/19 25 07/31/2024 PROTH ROMBI N W/INR + PARTI AL THROM BOPLA STIN TIMES PT 10.8 sec 9.0-11 .5 normal Not Available [facility] [place] [facility] [address], [place], [address], 07/31/2024 16:28:21 07/31/19 25 07/31/2024 PROTH ROMBI N W/INR + PARTI AL THROM BOPLA STIN TIMES copy(ies) sent to: [facility] [address] [place] [address] Not Available [facility] [address], [place], [address], 07/31/2024 16:28:21 07/31/19 25 08/01/2024 BASIC METAB OLIC PANEL glucose 89 mg/dL 65-139 normal Non-f astin g refer ence inter jim Not Available [facility] [address], [place], [address], 08/01/2024 03:40:22 07/31/19 25 08/01/2024 BASIC METAB OLIC PANEL urea nitrogen (BUN) 20 mg/dL 7-25 normal Not Available [facility] [address], [place], [address], 08/01/2024 03:40:22 07/31/19 25 08/01/2024 BASIC METAB OLIC PANEL creatinine 1.11 mg/dL 0.70-1 .28 normal Not Available [facility] [address], [address], 08/01/2024 03:40:22 07/31/19 25 08/01/2024 BASIC METAB OLIC PANEL eGFR 71 mL/mi n/1.7 3m2 > or = 60 normal Not Available [facility] [address] [place], [address], 08/01/2024 03:40:22 07/31/1908/01/2024 BASIC METAB OLIC PANEL BUN/creatini ne ratio SEE NOTE: (calc ) 6-22 Not Repor natalie: BUN and Creat inine are withi n refer ence range . Not Available [facility] [address], [place], [address], 08/01/2024 03:40:22 07/31/1908/01/2024 BASIC METAB OLIC PANEL sodium 140 mmol/ L 135-14 6 normal Not Available [facility] [place] [facility] [address], [place], [address], 08/01/2024 03:40:22 07/31/1908/01/2024 BASIC METAB OLIC PANEL potassium 4.4 mmol/ L 3.5-5. 3 normal Not Available [facility] [place] [facility] [address], [place], [address], 08/01/2024 03:40:22 07/31/1908/01/2024 BASIC METAB OLIC PANEL chloride 107 mmol/ L 98-110 normal Not Available [facility] [address], [place], [address], 08/01/2024 03:40:22 07/31/1908/01/2024 BASIC METAB OLIC PANEL carbon dioxide 26 mmol/ L 20-32 normal Not Available [facility] [address], [place], [address], 08/01/2024 03:40:22 07/31/1908/01/2024 BASIC METAB OLIC PANEL calcium 9.3 mg/dL 8.6-10 .3 normal Not Available [facility] [address], [place], [address], 08/01/2024 03:40:22 07/31/19 25 08/01/2024 BASIC METAB OLIC PANEL copy(ies) sent to: [facility] COPY TO [facility] [address] [place] [place] [address] Not Available [facility] [place] [facility] [address], [place], [address], 08/01/2024 03:40:22 07/31/1908/01/2024 CBC (INCL UDES DIFF/ PLT) white blood cell count 8.0 thous and/u L 3.8-10 .8 normal Not Available [facility] [place] [facility] [address], [place], [address], 08/01/2024 00:45:55 07/31/1908/01/2024 CBC (INCL UDES DIFF/ PLT) red blood cell count 3.75 rafael on/uL 4.20-5 .80 low Not Available [facility] [place] [facility] [address], [place], [address], 08/01/2024 00:45:55 07/31/1908/01/2024 CBC (INCL UDES DIFF/ PLT) hemoglobin 11.5 g/dL 13.2-1 7.1 low Not Available [facility] [place] [facility] [address], [place], [address], 08/01/2024 00:45:55 07/31/19 25 08/01/2024 CBC (INCL UDES DIFF/ PLT) hematocrit 34.8 % 38.5-5 0.0 low Not Available [facility] [place] [facility] [address], [place], [address], 08/01/2024 00:45:55 07/31/19 25 08/01/2024 CBC (INCL UDES DIFF/ PLT) MCV 92.8 fL 80.0-1 00.0 normal Not Available [facility] [place] [facility] [address] [place], [place], [address], 08/01/2024 00:45:55 07/31/1908/01/2024 CBC (INCL UDES DIFF/ PLT) MCH 30.7 pg 27.0-3 3.0 normal Not Available [facility] [place] [facility] [address] [place], [place], [address], 08/01/2024 00:45:55 07/31/1908/01/2024 CBC (INCL UDES DIFF/ PLT) MCHC 33.0 g/dL 32.0-3 6.0 normal For adult s, a sligh t decre ase in the calcu lated MCHC value (in the range of 30 to 32 g/dL) is most likel y not clini keara signi jacquelyn t; danial er, it shoul d be inter prete d with cauti on in corre lat n with other red cell steve eters and the patie nt's clini steph condi tion. Not Available [facility] [place] [facility] [address] [place], [place], [address], 08/01/2024 00:45:55 07/31/1908/01/2024 CBC (INCL UDES DIFF/ PLT) RDW 12.6 % 11.0-1 5.0 normal Not Available [facility] [place] [facility] [address] [place], [place], [address], 08/01/2024 00:45:55 07/31/1908/01/2024 CBC (INCL UDES DIFF/ PLT) platelet count 244 thous and/u L 140-40 0 normal Not Available [facility] [place] [facility] [address] [place], [place], [address], 08/01/2024 00:45:55 07/31/1908/01/2024 CBC (INCL UDES DIFF/ PLT) MPV 12.1 fL 7.5-12 .5 normal Not Available [facility] [place] [facility] [address], [place], [address], 08/01/2024 00:45:55 07/31/19 25 08/01/2024 CBC (INCL UDES DIFF/ PLT) absolute neutrophils 3920 cells /uL 1500-7 800 normal Not Available [facility] [place] [facility] [address], [place], [address], 08/01/2024 00:45:55 07/31/19 25 08/01/2024 CBC (INCL UDES DIFF/ PLT) absolute lymphocytes 2800 cells /uL 850-39 00 normal Not Available [facility] [place] [facility] [address], [place], [address], 08/01/2024 00:45:55 07/31/19 25 08/01/2024 CBC (INCL UDES DIFF/ PLT) absolute monocytes 992 cells /uL 200-95 0 high Not Available [facility] [place] [facility] [address], [place], [address], 08/01/2024 00:45:55 07/31/19 25 08/01/2024 CBC (INCL UDES DIFF/ PLT) absolute eosinophils 200 cells /uL 15-500 normal Not Available [facility] [place] [facility] [address], [place], [address], 08/01/2024 00:45:55 07/31/19 25 08/01/2024 CBC (INCL UDES DIFF/ PLT) absolute basophils 88 cells /uL 0-200 normal Not Available [facility] [place] [facility] [address], [place], [address], 08/01/2024 00:45:55 07/31/19 25 08/01/2024 CBC (INCL UDES DIFF/ PLT) neutrophils 49 % normal Not Available [facility] [place] [facility] [address], [place], [address], 08/01/2024 00:45:55 07/31/19 25 08/01/2024 CBC (INCL UDES DIFF/ PLT) lymphocytes 35.0 % normal Not Available [facility] [address], [place], [address], 08/01/2024 00:45:55 07/31/1908/01/2024 CBC (INCL UDES DIFF/ PLT) monocytes 12.4 % normal Not Available [facility] [address], [place], [address], 08/01/2024 00:45:55 07/31/1908/01/2024 CBC (INCL UDES DIFF/ PLT) eosinophils 2.5 % normal Not Available [facility] [address], [place], [address], 08/01/2024 00:45:55 07/31/1908/01/2024 CBC (INCL UDES DIFF/ PLT) basophils 1.1 % normal Not Available [facility] [address], [place], [address], 08/01/2024 00:45:55 07/31/1908/01/2024 CBC (INCL UDES DIFF/ PLT) copy(ies) sent to: [facility] [address] [place] [address] Not Available [facility] [place] [facility] [address], [place], [address], 08/01/2024 00:45:55 03/29/20 24 03/14/2024 [facility] [id number] Not Available 2023 12:50:09 05/28/20 24 04/13/2024 pacem erasto monit oring , remot e No observ ation record ed. [id number] Not Available 2023 20:03:22 05/28/20 24 05/14/2024 pacem erasto monit oring , remot e No observ ation record ed. [id number] Not Available 2023 21:00:44 06/21/20 24 06/20/2024 XR, chest No observ ation record ed. [facility] [address], [place], [address], 08/01/2024 09:52:44 06/22/20 24 06/13/2024 pacem erasto monit oring , remot e No observ ation record ed. [email or web address] Not Available 2023 14:04:36 07/16/19 25 07/15/2024 pacem erasto monit oring , remot e No observ ation record ed. [email or web address] Not Available 2024 18:13:23 07/31/19 25 07/31/2024 elect rocar diogr am No observ ation record ed. [facility] [address], [place], [address], 07/31/2024 11:12:49 08/01/19 elect rocar diogr am No observ ation record ed. [facility] [place] [address] [facility], [place], [address], 08/01/2024 09:52:13 08/03/19 25 08/02/2024 XR, chest No observ ation record ed. [facility] [address] [place], [address], 08/03/2024 13:11:17 08/09/19 25 08/03/2024 pacem erasto monit oring , remot e No observ ation record ed. [id number] Not Available 2024 13:21:29 08/15/19 25 08/15/2024 elect rocar diogr am No observ ation record ed. [facility] [address] [facility], [place], [address], 08/15/2024 17:12:18 08/15/19 elect rocar diogr am No observ ation record ed. [email or web address] Not Available 2024 07:41:32 09/15/19 25 09/14/2024 elect rocar diogr am No observ ation record ed. [facility] [address] [facility], [place], [address], 09/14/2024 09:34:55 09/15/19 elect rocar diogr am No observ ation record ed. [email or web address] Not Available 2024 09:50:18 10/05/19 25 10/01/2024 pacem erasto anton diaz , remot e No observ ation record ed. [email or web address] Not Available 2024 13:31:15 Result Notes None recorded. Problems Name Problem SNOMED Code Status Onset Date Resolution Date Notes Provider Name and Address Organization Details Recorded Time Heart murmur 65547399 Active 2022 Gisselle menjivar, [place] [facility] 3 08:10:06 Heart valve disorder 929920 Active 2022 Gisselle menjivar, [place] [facility] 08:10:06 Cardiac pacemaker in situ 897580067 Active 2022 Gisselle menjivar, [place] [facility] 08:10:06 Aortic valve stenosis 20412568 Active 2022 Gisselle menjivar, [place] [facility] 08:10:06 Mitral valve stenosis 64969679 Active 2022 Gisselle menjivar, [place] [facility] 08:10:06 Non-rheuma tic mitral valve stenosis 152162939 Active 2022 Gisselle menjivar, [place] [facility] 08:10:06 Tricuspid incompeten ce, non-rheuma tic 262285768 Active 2022 Gisselle menjivar, [place] [facility] 08:10:06 Coronary arterioscl erosis 25746212 Active 2022 Gisselle Perry null, [place] [facility] 08:10:06 Replacemen t of aortic valve Active 2022 Gisselle Perry null, [place] [facility] 08:10:41 Replacemen t of mitral valve Active 2022 Gisselle Perry null, [place] [facility] 3 08:10:51 Coronary artery bypass graft Active 2023 Diana Morrell MD [address] [facility], [place], [address], [place] [facility] 4 08:14:55 Atrial flutter 6033189 Active 2023 Cyril Schmitz APRN [address] [facility], [address], [place], [address], [place] [facility] 4 12:49:13 History of aortic valve replacemen t 8240571468574 Active 2023 Diana Morrell MD [address] [facility], [address], [place], [address], [place] [facility] 4 13:26:34 Problem Notes None recorded. Procedures Surgical History Date Name Laterality Status Provider Name and Address Organization Details Recorded Time 3 Cardiac Surgery completed Lola Mcnamara [place] [facility] 03/16/2024 13:46:14 3 Cardiac Surgery completed Gisselle Perry [place] [facility] 08/10/2024 12:57:29 Imaging Results Imaging Date Name Status LastModified by Organization Details LastModified Time 03/14/2024 pacemaker monitoring, remote completed [id number] Information not available 03/29/2024 12:50:09 04/13/2024 pacemaker monitoring, remote completed [email or web address] Information not available 05/28/2024 20:03:22 05/14/2024 pacemaker monitoring, remote completed [email or web address] Information not available 05/28/2024 21:00:44 06/20/2024 XR, chest completed [facility] [address], [place], [address], 08/01/2024 09:52:44 06/13/2024 pacemaker monitoring, remote completed [email or web address] Information not available 06/22/2024 14:04:36 07/15/2024 pacemaker monitoring, remote completed [email or web address] Information not available 07/16/2024 18:13:23 07/31/2024 electrocardiogram completed [facility] [address], [address], 07/31/2024 11:12:49 08/01/2024 electrocardiogram completed [facility] [address], [address], 08/01/2024 09:52:13 08/02/2024 XR, chest completed [facility] [address] [place], [address], 08/03/2024 13:11:17 08/03/2024 pacemaker monitoring, remote completed [email or web address] Information not available 08/09/2024 13:21:29 08/15/2024 electrocardiogram completed [facility] [address], [address], 08/15/2024 17:12:18 08/15/2024 electrocardiogram completed [email or web address] Informa tion not available 09/27/2024 07:41:32 09/14/2024 electrocardiogram completed [facility] [address], [address], 09/14/2024 09:34:55 09/14/2024 electrocardiogram completed [email or web address] Informa tion not available 09/14/2024 09:50:18 10/01/2024 pacemaker monitoring, remote completed [email or web address] Information not available 10/04/2024 13:31:15 Procedure Notes None recorded. Medical Equipment None Reported. Allergies Allergen ID Allergen Name Allergen Category Reaction Reaction Severity Criticality Documentation Date Start Date Code Code System Note Provider Name and Address Organization Details Recorded Time [id number] No known allergy (situatio n) Not available Not available Not available Not available 06/22/2023 41652 6003 SNOMED Gisselle menjivar, [place] [facility] 08:09:37 No known drug allergies Medications Name Sig Start Date Stop Date Status Note LastModified by Organization Details LastModified Time furosemide 40 mg tablet Take 1 tablet every day by oral route. 07/22 completed Not Available Not Available Not Available latanoprost 0.005 % eye drops INSTILL 1 DROP INTO BOTH EYES AT BEDTIME 04/08 completed Not Available Not Available Not Available acetaminoph en 325 mg tablet 650 mg every 6 hours by oral route. 07/22 completed Not Available Not Available Not Available atorvastati n 20 mg tablet TAKE 1 TABLET BY MOUTH EVERY DAY 2024 active Not Available Not Available Not Avai lable Potassium Chloride ER 10 mEq tablet,exte nded release Take 1 tablet every day by oral route. 07/22 completed Not Available Not Available Not Available potassium chloride ER 10 mEq tablet,exte nded release 10 milliequi valents by oral route. 06/26 completed Not Available Not Available Not Available amoxicillin 500 mg tablet TAKE four tablets one hour prior to dental visits 2023 active Not Available Not Available Not Avai lable ketorolac 0.5 % eye drops INSTILL 1 DROP INTO LEFT EYE 3 TIMES A DAY AFTER LASER PROCEDURE THEN 4 TIMES A DAY FOR 2 DAYS 04/08 completed Not Available Not Available Not Available hydromorpho ne 2 mg tablet 2 mg every 6 hours by oral route. 06/29 completed Not Available Not Available Not Available tamsulosin 0.4 mg capsule TAKE 1 CAPSULE BY MOUTH EVERYDAY AT BEDTIME 04/08 completed Not Available Not Available Not Available aspirin 81 mg chewable tablet Chew 1 tablet every day by oral route. 09/11 completed Not Available Not Available Not Available metoprolol succinate ER 25 mg tablet,exte nded release 24 hr Take 1 tablet every day by oral route. 2023 active Not Available Not Available Not Avai lable docosahexae noic acid (dha)-epa 120 mg-180 mg capsule Take 1000 mg by oral route. 07/22 completed Not Available Not Available Not Available [facility] 3 TAKE 2 TABLETS BY MOUTH 4x A DAY NEEDED 10/16 completed Not Available Not Available Not Available Eliquis 5 mg tablet TAKE 1 TABLET BY MOUTH TWICE A DAY 2024 active Not Available Not Available Not Avai lable Multi Vitamin 1 TAB DAILY 08/11 completed Not Available Not Available Not Available COVID-19 vac, bv ([place])(PF ) fully vaccinate d with booster active Not Available Not Available No t Available Vitals Date Recorded Body height Body mass index (BMI) Body weight Heart rate Oxygen saturation Oxygen saturation in Arterial blood by Pulse oximetry Systolic blood pressure Diastolic blood pressure Provider Name and Address Organization Details Last Updated DateTime 5 180.34 cm 28.9 kg/m2 43990.6 2 g 60 /min 98 % 98 % 142 mm[Hg] 76 mm[Hg] Vibha Izquierdo, RN [address] [place] [address], [address] , [place] [facility] 10:30:13 Date Recorded Body height Body mass index (BMI) Body weight Oxygen saturation Oxygen saturation in Arterial blood by Pulse oximetry Heart rate Systolic blood pressure Diastolic blood pressure Provider Name and Address Organization Details Last Updated DateTime 5 180.34 cm 28.7 kg/m2 88087.0 3 g 98 % 98 % 66 /min 122 mm[Hg] 76 mm[Hg] Gisselle Perry [place] [facility] 5 14:11:31 Date Recorded Body height Body mass index (BMI) Body weight Heart rate Systolic blood pressure Diastolic blood pressure Provider Name and Address Organization Details Last Updated DateTime 5 180.34 cm 29 kg/m2 21926.2 1 g 67 /min 126 mm[Hg] 78 mm[Hg] Faith Jaimes [place] [facility] 5 09:39:08 Social History Question Answer Notes LastModified by [employer] Details LastModified Time Tobacco Smoking Status Never Smoker Faith Jaimes null, [place] [facility] 04/08/2023 08:03:18 What Is Your Level Of Alcohol Consumption? Occasional 0-1 Beer A Week Information not available 08/15/2024 What Is Your Level Of Caffeine Consumption? Moderate 1 Cup Of Coffee Daily Tea 1 A Week Soda No Chocolate 2-3 Weekly Information not available 08/15/2024 Are You Currently Employed? Yes [email or web address] Information not available 09/14/2024 How Many Days Of Moderate To Strenuous Exercise, Like A Brisk Walk, Did You Do In The Last 7 Days? 6 [email or web address] Information not available 03/16/2024 On Those Days That You Engage In Moderate To Strenuous Exercise, How Many Minutes, On Average, Do You Exercise? 60 [email or web address] Information not available 03/16/2024 What Was The Date Of Your Most Recent Tobacco Screening? 09/14/2024 [email or web address] Information not available 09/14/2024 Do You Use Any Illicit Or Recreational Drugs? No [email or web address] Information not available 03/16/2024 Do You Or Have You Ever Used Any Other Forms Of Tobacco Or Nicotine? No [email or web address] Information not available 03/16/2024 Sex: Male Functional Status Question Answer Note LastModified by [employer] Details LastModified Time What is your exercise level? Moderate cardiac rehab 2x week bike, strentgh, stationary bike, walk, resistance training [email or web address] Information not available 03/16/2024 Mental Status None recorded. Family History Nothing Reported. Medical History No medical history recorded. Past Encounters Encounter ID Performer Location Encounter Start Date Encounter Closed Date Diagnosis/Indication Diagnosis SNOMED-CT Code Diagnosis ICD10 Code Diagnosis Note [id number] MD [place] [facility] [address] [place] [address] 04/08/2023 07:35:11 04/08/2023 08:50:02 Aortic valve stenosis 65706407 I35.0 Cardiac pa cemaker in situ 970524899 Z95.0 [id number] MD [place] Ortez_[address] [place] [address] 04/18/2023 15:40:34 04/18/2023 16:11:49 Aortic valve stenosis 14340994 I35.0 Cardiac pa cemaker in situ 526359133 Z95.0 [id number] Westley Rehman MD [facility] [address] [facility] [place] [address] 05/12/2023 11:27:40 05/12/2023 11:27:56 [id number] Diana Morrell MD [facility] [place] [address] 07/22/2023 09:08:35 07/22/2023 09:47:09 Cardiac pacemaker in situ 839680805 Z95.0 Coronary arteriosclerosis 37557004 I25.10 History of aortic valve replacement 6999873539 100 Z95.4 History of mitral valve replacement 0497537551 109 Z95.2 [id number] Cyril Schmitz APRN [facility] [address] [place] [address] 09/12/2023 10:54:41 09/12/2023 13:49:06 Atrial flutter 1944693 I48.92 [id number] Diana Morrell MD [facility] [place] [address] 10/17/2023 09:29:53 10/17/2023 10:11:47 Coronary arteriosclerosis 67238321 I25.10 Cardiac pa cemaker in situ 202767346 Z95.0 History of aortic valve replacement 1197248839 100 Z95.4 History of mitral valve replacement 4316895649 109 Z95.2 Atrial flutter 2896231 I 48.92 [id number] MD [place] Farmer[facility] [place] [address] 11/23/2023 09:09:11 11/23/2023 10:30:30 Atrial flutter 1841291 I48.92 [id number] MD [place] Ortez_[address] [place] [address] 03/16/2024 13:43:39 03/16/2024 14:13:56 Atrial flutter 0743028 I48.92 s/p CV 12/02/23 History of aortic valve replacement 4119479999 100 Z95.4 History of mitral valve replacement 1139553715 109 Z95.2 [id number] MD [facility] [address] [facility] [address] 01/25/2024 09:09:59 01/25/2024 09:45:10 Atrial flutter 2732727 I48.92 Cardiac pa cemaker in situ 704698333 Z95.0 [id number] Cyril Schmitz APRN [facility] [address] [place] [address] 04/16/2024 11:18:18 04/16/2024 12:36:05 [id number] Cyril Schmitz APRN [facility] [address] 07/31/2024 10:00:16 07/31/2024 10:57:41 Cardiac pacemaker in situ 862833189 Z95.0 Aortic valve stenosis 60 310912 I35.0 Atrial flutter 1535357 I 48.92 Coronary arteriosclerosis 19170251 I25.10 Non-rheuma tic mitral valve stenosis 274450412 I34.2 [id number] Westley Yi MD [facility] [place] [address] [place] [address] 08/02/2024 07:56:55 08/03/2024 09:35:59 Cardiac pacemaker in situ 605042129 Z95.0 [id number] MD [facility] [address] [facility] [address] 08/15/2024 13:38:57 08/15/2024 15:36:55 Cardiac pacemaker in situ 341349880 Z95.0 Atrial flutter 6022086 I 48.92 [id number] Diana Morrell MD [facility] [address] [facility] [address] 09/14/2024 09:33:03 09/14/2024 10:08:49 History of aortic valve replacement 4593468006 100 Z95.4 Coronary arteriosclerosis 47028396 I25.10 Cardiac pa dipika in situ 880376870 Z95.0 Health Concerns Section Related Observation LastModified by Organization Detai ls LastModified Time None Recorded Concern Status LastModified by Organization Details LastModified Time None Recorded Advance Directives Directive None Recorded Payers Encounter Date Sequence Insurance Name Policy Number Policy Mcdoewll Covered Member ID [id number] Member ID Guarantor Name 04/16/2024 1 [employer] (MEDICARE REPLACEMENT PPO) [id number] Jason Randall Anibal [id number] Jason Barnett 07/31/2024 1 [employer] (MEDICARE REPLACEMENT PPO) [id number] Jason Randall Anibal [id number] Jason Tijerinaau 08/02/2024 1 [employer] (MEDICARE REPLACEMENT PPO) [id number] Jason Randall Anibal [id number] Jason Tijerinaau 08/15/2024 1 [employer] (MEDICARE REPLACEMENT PPO) [id number] 1 Jason Randall Anibal [id number] Jason Barnett 09/14/2024 1 [employer] (MEDICARE REPLACEMENT PPO) [id number] 1 Jason Randall Anibal [id number] Jason Billodeau Notes Date Note Type Note Provider Name and Address Organization Details Recorded Time 07/31/2024 text/html Mr Barnett is a 68 y.o male with history of aortic valve stenosis likely related to radiation treatment for non-Hodgkin's lymphoma, pacemaker, and mild mitral valve stenosis, history of AVR (bioprosthetic), MVR (bioprosthetic), CABG x 1 with vein graft to the RCA on 06/17/2023 and atrial flutter on Eliquis s/p cardioversion 11/2023 presenting to the office today for preoperative risk stratification for elective generator change on 08/02/[address] Yi. Jason is a patient of Dr Morrell, last seen in March with stable symptoms at the time. Since his last visit, I saw him for device interrogation, that was normal, no AF since December, His battery has reached JIMI hence upcoming gen change. Jason continues to do well. He has no complaints. He feels great . He specifically denies any new dizziness or lightheadedness, no chest pain or palpitations. No shortness of breath. He has trace BLE edema. He continues to participate in cardiac rehab. No exertional anginal complaints. Echocardiogram 03/11/2023: LVEF 55-60%. Probably trileaflet severely calcified aortic valve. Severe aortic valve stenosis with peak gradient 84 mmHg mean gradient 45 mmHg. Valve area 0.7 cm? ? ?. DI 0.22. Moderate AI. Mitral valve thickened and calcified. Restricted motion. Mean gradient 7 mmHg. Mild MR. PASP 45-50 mmHg. Cyril Schmitz, [employer] [address] [facility],[address], [place], [address], [place] [facility] 07/31/2024 11:13:56 08/15/2024 text/html Jason is a 68-year-old man with a past medical history including aortic valve stenosis, mild mitral valve stenosis, status post bioprosthetic mitral and aortic valves, non-Hodgkin's lymphoma, status post radiation treatment, CABG x1 to the RCA in 06/2023, status post dual chamber pacemaker, who was referred by my colleague Dr. Morrell for assistance with management of his atrial flutter.His cardiac rehabilitation has been progressing well, with consistent monitoring of normal heart rhythms detected. Since the surgery, his endurance has been gradually improving, with a decrease in shortness of breath. He can now exercise for an hour without experiencing breathlessness. He maintains a walking regimen of 3 miles daily when the weather permits, and plans to ride his bicycle. He monitors his blood pressure at home, which occasionally indicates an irregular heartbeat, but his heart rate remains within normal parameters. His blood pressure is generally well-controlled. He began experiencing atrial flutter approximately 2 months ago. He had a follow-up with Cyril to check his device, during which the flutter was noted. He was prescribed Eliquis. He began taking Eliquis on 09/12/2023, but missed one dose last week. He underwent mitral and aortic valve replacement surgery 5 months ago.SOCIAL HISTORYHe worked for the [facility]. 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 01/25/2024: he feels much better in sinus rhythm. Denies complaints. No more shortness of breath. 08/15/2024: He underwent pacemaker generator change with me on 08/02/2024. His wound is feeling well. Westley Yi MD [address] [place] [address],[address], [place], [address], [place] [facility] 08/15/2024 16:54:50 09/14/2024 text/html I had the pleasu re of seeing the patient today in cardiology follow-up. He has a prior history of aortic valve stenosis likely related to radiation treatment for non-Hodgkin's lymphoma, pacemaker, and mild mitral valve stenosis, and atrial flutter. He has a prior history of AVR (bioprosthetic), MVR (bioprosthetic), CABG x 1 with vein graft to the RCA on 06/17/2023. 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 No orthopnea, PND, or LE edema.Had pacemaker generator change. Social history: No smoking. Drinks 3? 4 beers per week. Rare marijuana. Retired 2 years ago. Previously worked for the [employer] in the [employer] department. Family history noncontributory. Echocardiogram 03/11/2023: LVEF 55-60%. Probably trileaflet severely calcified aortic valve. Severe aortic valve stenosis with peak gradient 84 mmHg mean gradient 45 mmHg. Valve area 0.7 cm? ? ?. DI 0.22. Moderate AI. Mitral valve thickened and calcified. Restricted motion. Mean gradient 7 mmHg. Mild MR. PASP 45-50 mmHg.Echo 09/08/2022: LVEF 50-60%. Similar aortic valve findings. Peak gradient 84 mmHg. Mean gradient 40 mmHg. Moderate AI. Dimensionless index 1.25. Mitral valve mean gradient 8 mmHg. Moderate MR. DIMPLE 12/01: Not normal LV and RV function. Bioprosthetic valve without paravalvular regurgitation. Normal bioprosthetic valve gradient. Bioprosthetic mitral valve mean gradient 4.6 mmHg. Echodensities attached to the atrial and RV lead moderate TR. Diana Morrell MD [address] [place] [address],[address], [place], [address], [place] [facility] 09/14/2024 10:02:39
--- OUTSIDE RECORDS SUMMARY | 2024-10-28 14:31 | XMS_ITS ---
[facility] Name [facility] Organization Unknown History of Medication Use Medication Directions Dispensed Refills Start Date End Date Stat amoxicillin 500 mg tablet TAKE four tablets one hour prior to dental visits 03/16/2024 active aspirin 81 mg chewable tablet Chew 1 tablet every day by oral route. 06/22/2023 4 completed furosemide (LASIX) 40 MG tablet Take 1 tablet (40 mg total) by mouth daily. Take for 3 days then stop. Do not start before June 22, 2023. 06/22/2023 active acetaminophen 325 mg tablet 650 mg every 6 hours by oral route. 06/21/2023 4 completed atorvastatin (LIPITOR) 20 MG tablet Take 1 tablet (20 mg total) by mouth nightly. 06/21/2023 active HYDROmorphone (DILAUDID) 2 MG tablet Take 1 tablet (2 mg total) by mouth 4 times daily (every 6 hours) as needed for severe pain. Max Daily Amount: 8 mg 06/21/2023 active metoPROLOL SUCCINATE (TOPROL-XL) 25 MG 24 hr tablet Take 1 tablet (25 mg total) by mouth daily. 06/21/2023 active iohexol (OMNIPAQUE) 350 mg/mL injection 80 mL 80 mL, Intravenous, Once in imaging, contrast, Starting on Tue06/07/23 at 1518, For 1 dose, Radiology Appointment 06/07/2023 3 completed docosahexaenoic acid (dha)-epa 120 mg-180 mg capsule Take 1000 mg by oral route. 4 completed ketorolac 0.5 % eye drops INSTILL 1 DROP INTO LEFT EYE 3 TIMES A DAY AFTER LASER PROCEDURE THEN 4 TIMES A DAY FOR 2 DAYS 3 completed latanoprost 0.005 % eye drops INSTILL 1 DROP INTO BOTH EYES AT BEDTIME 3 completed Multiple Vitamin (MULTIVITAMIN ADULT PO) Take by mouth. active Problems Problem Status Onset Date Problem Type Date of Resolution Source Non-rheumatic mitral valve stenosis active 2023-05-[address] [facility] Tricuspid incompetence, non-rheumatic active 2023-05-[address] [facility] Coronary arteriosclerosis active 2023-05-[address] [facility] [facility] Coronary artery bypass graft active 2023-07-[address] [facility] Heart murmur active 2023-04-[address] [facility] Replacement of aortic valve active 2023-06-[address] [facility] Atrial flutter active 2023-09-[address] [facility] Aortic valve stenosis active 2023-04-[address] [facility] Replacement of mitral valve active 2023-06-[address] [facility] Heart valve disorder active 2023-04-[address] [facility] Cardiac pacemaker in situ active 2023-04-[address] [facility] History of aortic valve replacement active 2024-03-[address] [facility] [facility] Mitral valve stenosis active 2023-04-[address] [facility] S/P AVR (aortic valve replacement) active 2023-07-15 ProblemAct [facility] Coronary artery disease with cardiac symptoms active 2023-06-17 ProblemAct [facility] S/P coronary artery bypass graft x 1 active 2023-07-15 ProblemAct [facility] Atrial fibrillation, unspecified type (HCC) active EncounterDiagnosisAct CCT Nonrheumatic tricuspid valve regurgitation active 2023-05-16 ProblemAct [facility] Encounters Encounter Type Encounter Reason Primary Diagnosis Location Date [facility] 09/14[facility]2024 [facility] 08/09/2024 Ambulatory Bradycardia, unspecified Bradycardia, unspecified [facility] 08/02/2024 [facility] 08/01/2024 [facility] 08/01/2024 [facility] 07/25/2024 [facility] 07/25/2024 [facility] 07/06/2024 [facility] 03/18/2024 [facility] 03/12/2024 [facility] 02/13/2024 [facility] 02/10/2024 [facility] 01/19/2024 Ambulatory Unspecified atrial fibrillation Unspecified atrial fibrillation [facility] 12/02/2023 [facility] 11/17/2023 [facility] 10/11/2023 [facility] 08/04/2023 Ambulatory Presence of prosthetic heart valve Presence of prosthetic heart valve [facility] 07/15/2023 Inpatient Presence of prosthetic heart valve Presence of prosthetic heart valve [facility] 06/17/2023 Ambulatory Encounter for other preprocedural examination Encounter for other preprocedural examination [facility] 06/07/2023 Ambulatory Nonrheumatic aortic (valve) stenosis Nonrheumatic aortic (valve) stenosis [facility] 05/16/2023 Ambulatory Nonrheumatic aortic (valve) stenosis Nonrheumatic aortic (valve) stenosis [facility] 05/16/2023 Ambulatory Nonrheumatic aortic (valve) stenosis Nonrheumatic aortic (valve) stenosis [facility] 05/10/2023 Care Team Organization Name Specialty Phone Email Start Date End [facility] Is[facility]el [facility] 08/10/2023 [facility] YOVANNY DALY [facility] 05/17/2023 025 [facility] YOVANNY DALY [facility] 05/16/2023 023 [facility] NO PCP Primary Care 05/16/2023 05/16/2023 [facility] PCP,No Primary Care 05/10/2023 09/19/2024 [facility]
--- OUTSIDE RECORDS SUMMARY | 2024-10-28 14:31 | XMS_ITS | Data Portability ---
Author Organization [facility], [facility] Address [address] [place] [address] Care Team Providers Care Airdox Fitter Name Role Phone PANFILONEGRITANARAYANYO Primary Care Provider [facility] OTHER JOSE LUIS MALDONADO JR Electrical Instrumentation Technician MICHAEL HERNANDEZ Urologist DIANA MORRELL Physical Therapy Manager NINA KELLY Physical Therapy Manager [place]IR[place] FRYE OTHER Assessment Encounter Date Assessment Date Assessment LastModified by Organization Details LastModified Time 12/20/2022 12/20/2022 We completed your Medicare Wellness exam today. This was an opportunity to assess your overall well being including your ability to care for yourself, your mobility, memory, mental health, as well as your safety. With advancing age, it is important to assign someone in your life as your Health Care Proxy (HCP). This person should know what is important to you and what your wishes are for medical procedures if you cannot communicate your wishes yourself (severe illness, unconsciousness) . We discussed having a completed Health Care Proxy form today. In addition, today we started a conversation about your End of Life wishes. These conversations will continue over the years. Please consider reading the book, Being Mortal by Ajit Alvarenga to help frame future conversations. We discussed the purpose of a MOLST form (Medical Orders for Life Sustaining Treatment) and completed this form if appropriate per your wishes. Vision and Hearing are senses that are critically important as we age. When impaired, they can contribute to memory loss, falls, and make it harder to drive, talk to family and friends, and engage in the world. Please get your vision checked yearly and your hearing checked when you start to notice hearing loss. We discussed approaches to lowering your risk of heart disease and stroke . Your blood pressure . Your cholesterol . We discussed cancer screening you may need as well as vaccines to prevent infections. Colon Cancer : Your risk of colon cancer is average. Due for colorectal screenin.. if you are not planning to have a colonoscopy please screen with stool cards yearly. Prostate Cancer : PSA testing for ages 55-69 risks and benefits discussed . large prostate. seeing urol. Aortic Aneurysm Screening : is indicated if you have a history of smoking and is due once at age 65. Influenza Vaccine : Flu shot yearly. Tetanus Vaccine : Every 10 years. Due: . The following vaccines are available from your pharmacy: Pneumonia Vaccine : PCV20: once after age 65. Shingles Vaccine : 2 shots after age 50. Covid Vaccine : Make sure you have received the most up to date covid vaccine. Your personal health goal for the year is: [facility] Not available 12/20/2022 09:43:31 12/26/2023 12/26/2023 We completed your Medicare Wellness exam today. This was an opportunity to assess your overall well being including your ability to care for yourself, your mobility, memory, mental health, as well as your safety. With advancing age, it is important to assign someone in your life as your Health Care Proxy (HCP). This person should know what is important to you and what your wishes are for medical procedures if you cannot communicate your wishes yourself (severe illness, unconsciousness) . We discussed having a completed Health Care Proxy form today. In addition, today we started a conversation about your End of Life wishes. These conversations will continue over the years. Please consider reading the book, Being Mortal by Ajit Alvarenga to help frame future conversations. We discussed the purpose of a MOLST form (Medical Orders for Life Sustaining Treatment) and completed this form if appropriate per your wishes. Vision and Hearing are senses that are critically important as we age. When impaired, they can contribute to memory loss, falls, and make it harder to drive, talk to family and friends, and engage in the world. Please get your vision checked yearly and your hearing checked when you start to notice hearing loss. We discussed approaches to lowering your risk of heart disease and stroke . Your blood pressure is at goal. Your cholesterol . We discussed cancer screening you may need as well as vaccines to prevent infections. Colon Cancer : Your risk of colon cancer is higher than average due to personal history of colon polyps. Due for colorectal screenin. If you are not planning to have a colonoscopy please screen with stool cards yearly. B Prostate Cancer : PSA testing for ages 55-69 risks and benefits discussed .had testing Influenza Vaccine : Flu shot yearly. Tetanus Vaccine : Every 10 years. Due: . The following vaccines are available from your pharmacy: Pneumonia Vaccine : PCV20: once after age 65. Shingles Vaccine : 2 shots after age 50. Covid Vaccine : Make sure you have received the most up to date covid vaccine. Your personal health goal for the year is: [facility] Not available 12/26/2023 09:53:56 Plan of Treatment Reminders Order Date Submit Date Provider Last Modified By Organization Details Last Modified Time Details Appointments NOAC Phone Call 2025 10:00A M Ehcnoac Not available Not available Not available Lab lipid panel, serum 2023 025 [facility], [address] [place] [address], [id number], 06/20/2024 09:11:05 BMP, serum or plasma 2023 025 [facility], [address] [place] [address], [id number], 06/20/2024 09:11:05 Referral None recorded . Procedures None recorded . Surgeries None recorded . Imaging XR, chest - f[facility]u x-ray. [email or web address] [address], [place], [address], 06/20/2024 15:41:56 XR, chest - HARRY and producti ve cough, decrease d BS in the LLL. r/o pneumoni a [email or web address] [place] [address] (Imaging), [address], [place], [address], 02/28/2024 15:59:33 Medication Orders doxycycl ine hyclate 100 mg capsule 2023 [id number] [address] [place], [address], 06/20/2024 08:45:28 amoxicil mitra 875 mg-potas sium clavulan ate 125 mg tablet 2023 024 [facility] #[id number], [address] [place], [address], 06/20/2024 08:45:01 Patient TargetsNo targets recorded. Patient Instructions Encounter Date Encounter Id Patient Instructions Last Modified By Organization Details Last Modified Time 12/20/2022 [id number] preventing falls : care instructions noman Not available 12/20/2022 09:43:59 hearing loss: care instructions rocío Not available 12/20/2022 09:43:59 advance directives: care instructions robertaland Not available 12/20/2022 09:43:59 well visit, over 65: care instructions einland Not available 12/20/2022 09:43:59 Prostate Cancer Screening using PSA was discussed. The U.S. Preventive Services Task Force advises not to make a PSA test a part of the standard exam for men ages 55-69. Instead they recommend the uncertainties about the test be discussed and ordered only if a patient still wants it. Over their lifetimes as many as 50% or more of men will develop prostate cancer but only 2% of men will of prostate cancer. For men who chose to be screened for prostate cancer if 1000 men are screened with a psa test over a 15 year period there might be 1-2 deaths prevented however 235 men will have a biopsy with risk of infection, bleeding and Pain, 100 men will have their prostate removed by surgery or radiation treatments and 60-70 of those will suffer incontinence or impotence. There is also the risk of anesthesia or radiation complications. For men over 70 prostate cancer screening offered no benefit and risked pain, worry, expense and possibly shorter life expectancy. Not available 12/20/2022 09:11:12 12/26/2023 [id number] would want resuscitation [facility] Not available 12/26/2023 09:56:20 Reason for Referral None Reported. Results Created Date Observation Date Name Description Value Unit Range Abnormal Flag Note LastModifiedBy Organization Detail LastModifiedTime 12/14/1912/13/2022 TSH TSH 3.06 uIU/m L 0.50-6 .00 The Ameri can Colle ge of Endoc rinol ogy and Ameri can Thyro id Assoc iatio n recom mend goal TSH value s betwe en 0.4-4 .0 mIU/m L. Not Available [address], [address], 12/13/2022 11:46:12 12/14/19 23 12/13/2022 BASIC METAB OLIC PANEL glucose 91 mg/dL 70-100 Not Available [address], [address], 12/13/2022 16:15:22 12/14/19 23 12/13/2022 BASIC METAB OLIC PANEL BUN 20 mg/dL 7-18 high Not Available [address], [address], 12/13/2022 16:15:22 12/14/19 23 12/13/2022 BASIC METAB OLIC PANEL creatinine 1.1 mg/dL 0.8-1. 3 Not Available [address], [address], 12/13/2022 16:15:22 12/14/19 23 12/13/2022 BASIC METAB OLIC PANEL B/C 18.2 ratio Not Available [address], [address], 12/13/2022 16:15:22 12/14/19 23 12/13/2022 BASIC METAB OLIC PANEL GFR >=60ML /MIN mL/mi n normal >=60m L/min - Cleo l or midly reduc ed <60mL /min- Decre ased kidne y funct ion <15mL /min - Kidne y failu re [facility] calcu lates estim ated Glome rular Filtr ation Rate (eGFR ) using the Chron ic Kidne y Disea se Epide miolo gy Colla borat ion (CKD- EPI) Equat ion (Natalya buenrostro et. al 2020) as recom tj d by the Natio nal Kidne y Found ation . eGFR is based on age, serum creat inine , and sex. CKD-E PI does not calcu late eGFR by race, does not apply to child sweta (age <18 years ), and shoul d not be used in pregn jamil. Not Available [address], [address], 12/13/2022 16:15:22 12/14/19 23 12/13/2022 BASIC METAB OLIC PANEL sodium 142 mmol/ L 136-14 5 Not Available [address], [address], 12/13/2022 16:15:22 12/14/19 23 12/13/2022 BASIC METAB OLIC PANEL potassium 4.6 mmol/ L 3.5-5. 1 Not Available [address], [address], 12/13/2022 16:15:22 12/14/19 23 12/13/2022 BASIC METAB OLIC PANEL chloride 105 mmol/ L 96-107 Not Available [address], [address], 12/13/2022 16:15:22 12/14/19 23 12/13/2022 BASIC METAB OLIC PANEL anion gap 13.0 5.0-15 .0 Not Available [address], [address], 12/13/2022 16:15:22 12/14/19 23 12/13/2022 BASIC METAB OLIC PANEL CO2 24 mmol/ L 21-32 Not Available [address], [address], 12/13/2022 16:15:22 12/14/1912/13/2022 BASIC METAB OLIC PANEL calcium 8.7 mg/dL 8.5-10 .3 Not Available [address], [address], 12/13/2022 16:15:22 05/03/20 23 05/03/2023 PROTI ME PT 9.6 secon ds 9.0-10 .4 Not Available [address], [address], 05/03/2023 10:36:40 05/03/2005/03/2023 PROTI ME INR 1.0 0.9-1. [address] [place] Value of 2.0-3 .0 for proph ylaxi s of Venou s Thomb osis, and preve ntion of Embol ism. Sugge sted Value of 2.5-3 .5 for preve ntion of Recur rent Embol ism or patie nts with Mecha nical Prost hetic Heart Valve s. Not Available [address], [address], 05/03/2023 10:36:40 05/03/20 23 05/03/2023 BASIC METAB OLIC PANEL glucose 92 mg/dL 70-100 Not Available [address], [address], 05/03/2023 11:25:46 05/03/2005/03/2023 BASIC METAB OLIC PANEL BUN 19 mg/dL 7-18 high Not Available [address], [address], 05/03/2023 11:25:46 05/03/20 23 05/03/2023 BASIC METAB OLIC PANEL creatinine 1.2 mg/dL 0.8-1. 3 Not Available [address], [address], 05/03/2023 11:25:46 05/03/20 23 05/03/2023 BASIC METAB OLIC PANEL B/C 15.8 ratio Not Available [address], [address], 05/03/2023 11:25:46 05/03/2005/03/2023 BASIC METAB OLIC PANEL GFR >=60ML /MIN mL/mi n normal >=60m L/min - Cleo l or midly reduc ed <60mL /min- Decre ased kidne y funct ion <15mL /min - Kidne y failu re [facility] calcu lates estim ated Glome rular Filtr ation Rate (eGFR ) using the Chron ic Kidne y Disea se Epide miolo gy Colla borat ion (CKD- EPI) Equat ion (Natalya r et. al 2020) as recom tj d by the Natio nal Kidne y Found ation . eGFR is based on age, serum creat inine , and sex. CKD-E PI does not calcu late eGFR by race, does not apply to child sweta (age <18 years ), and shoul d not be used in pregn jamil. Not Available [address], [address], 05/03/2023 11:25:46 05/03/2005/03/2023 BASIC METAB OLIC PANEL sodium 142 mmol/ L 136-14 5 Not Available [address], [address], 05/03/2023 11:25:46 05/03/2005/03/2023 BASIC METAB OLIC PANEL potassium 4.9 mmol/ L 3.5-5. 1 Not Available [address], [address], 05/03/2023 11:25:46 05/03/2005/03/2023 BASIC METAB OLIC PANEL chloride 106 mmol/ L 96-107 Not Available [address], [address], 05/03/2023 11:25:46 05/03/20 23 05/03/2023 BASIC METAB OLIC PANEL anion gap 9.3 5.0-15 .0 Not Available [address], [address], 05/03/2023 11:25:46 05/03/2005/03/2023 BASIC METAB OLIC PANEL CO2 27 mmol/ L 21-32 Not Available [address], [address], 05/03/2023 11:25:46 05/03/2005/03/2023 BASIC METAB OLIC PANEL calcium 9.2 mg/dL 8.5-10 .3 Not Available [address], [address], 05/03/2023 11:25:46 05/03/2005/03/2023 YANETA L BLANK JADE AL segs 58 % 34-71 Not Available [address], [address], 05/03/2023 12:40:36 05/03/2005/03/2023 MANUA L DIFFE RENTI AL lymph 22 % 19-53 Not Available [address], [address], 05/03/2023 12:40:36 05/03/2005/03/2023 MANUA L DIFFE RENTI AL mono 13 % 4-12 high Not Available [address], [address], 05/03/2023 12:40:36 05/03/2005/03/2023 MANUA L DIFFE RENTI AL eosin 1 % 0-7 Not Available [address], [address], 05/03/2023 12:40:36 05/03/2005/03/2023 MANUA L DIFFE RENTI AL baso 3 % 0-1 high Not Available [address], [address], 05/03/2023 12:40:36 05/03/20 23 05/03/2023 MIKEL RODRIGES reactive lymph 3 % 0-10 Not Available [address], [address], 05/03/2023 12:40:36 05/03/2005/03/2023 MIKEL RODRIGES platelet estimate Adequa te Not Available [address], [address], 05/03/2023 12:40:36 05/03/2005/03/2023 MIKEL RODRIGES poik 1+ Not Available [address], [address], 05/03/2023 12:40:36 05/03/2005/03/2023 CBC WBC 8.75 K/? ? ?L 4.23-9 .07 Not Available [address], [address], 05/03/2023 12:40:55 05/03/2005/03/2023 CBC RBC 4.07 M/? ? ?L 4.63-6 .08 low Not Available [address], [address], 05/03/2023 12:40:55 05/03/2005/03/2023 CBC HGB 12.3 g/dL 13.7-1 7.5 low Not Available [address], [address], 05/03/2023 12:40:55 05/03/2005/03/2023 CBC HCT 37.6 % 40.1-5 1.0 low Not Available [address], [address], 05/03/2023 12:40:55 05/03/20 23 05/03/2023 CBC MCV 92.4 fL 79.0-9 2.2 high Not Available [address], [address], 05/03/2023 12:40:55 05/03/2005/03/2023 CBC MCH 30.2 pg 25.7-3 2.2 Not Available [address], [address], 05/03/2023 12:40:55 05/03/2005/03/2023 CBC MCHC 32.7 g/dL 32.3-3 6.5 Not Available [address], [address], 05/03/2023 12:40:55 05/03/2005/03/2023 CBC plt 325 K/? ? ?L 163-33 7 Not Available [address], [address], 05/03/2023 12:40:55 05/03/2005/03/2023 CBC MPV 11.2 fL 9.4-12 .4 Not Available [address], [address], 05/03/2023 12:40:55 05/03/2005/03/2023 CBC neut% 53.0 % 34.0-6 7.9 Not Available [address], [address], 05/03/2023 12:40:55 05/03/2005/03/2023 CBC neut# 4.63 1.78-5 .38 Not Available [address], [address], 05/03/2023 12:40:55 05/03/2005/03/2023 CBC lymph % 26.7 % 21.8-5 3.1 Not Available [address], [address], 05/03/2023 12:40:55 05/03/2005/03/2023 CBC lymph # 2.34 K/? ? ?L 1.32-3 .57 Not Available [address], [address], 05/03/2023 12:40:55 05/03/2005/03/2023 CBC mono% 17.0 % 5.3-12 .2 high SREV= Slide revie wed by techn rey gonzales. Not Available [address], [address], 05/03/2023 12:40:55 05/03/2005/03/2023 CBC mono# 1.49 0.30-0 .82 high Not Available [address], [address], 05/03/2023 12:40:55 05/03/2005/03/2023 CBC eo% 2.1 % 0.8-7. 0 Not Available [address], [address], 05/03/2023 12:40:55 05/03/2005/03/2023 CBC eo# 0.18 0.04-0 .54 Not Available [address], [address], 05/03/2023 12:40:55 05/03/2005/03/2023 CBC baso% 1.0 % 0.2-1. 2 Not Available [address], [address], 05/03/2023 12:40:55 05/03/2005/03/2023 CBC baso# 0.09 0.00-0 .08 high Not Available [address], [address], 05/03/2023 12:40:55 05/03/2005/03/2023 CBC RDW-CV 12.9 % 11.6-1 4.4 Not Available [address], [address], 05/03/2023 12:40:55 05/03/20 23 05/03/2023 CBC Ig% 0.200 % 0.000- 1.500 Ig % >0.5 Indic ates possi ble Left Shift Not Available [address], [address], 05/03/2023 12:40:55 05/03/20 23 05/03/2023 CBC Ig# 0.020 0.000- 0.093 Not Available [address], [address], 05/03/2023 12:40:55 05/03/2005/03/2023 CBC NRBC% 0.0 % 0.0-0. 2 Not Available [address], [address], 05/03/2023 12:40:55 05/03/2005/03/2023 CBC NRBC# 0.000 0.000- 0.012 Not Available [address], [address], 05/03/2023 12:40:55 11/09/19 24 11/10/2023 PSA (FREE AND TOTAL ) PSA, total 2.2 NG/mL < or = 4.0 normal Not Available [facility] [address], [address], 11/10/2023 13:37:45 11/09/19 24 11/10/2023 PSA (FREE AND TOTAL ) PSA, free 0.6 NG/mL normal Not Available [facility] [address], [address], 11/10/2023 13:37:45 11/09/19 24 11/10/2023 PSA (FREE AND TOTAL ) PSA, % free 27 %_(ca lc) >25 normal PSA(n g/mL) Free PSA(% ) Estim ated( x) Proba bilit y of Cance r(as% ) 0-2.5 (*) Appro x. 1 2.6-4 .0(1) 0-27( 2) 24(3) 4.1-1 0(4) 0-10 56 11-15 28 16-20 20 21-25 16 >or =26 8 >10(+ ) N/A >50 Refer ences :(1)Faheem bernard et al.:U rolog y 60: 469-4 74 (2001 ) (2)Aurora maxwell et al.:J .Urol 168: 922-9 25 (2001 ) Free PSA(% ) Sensi tivit y(%) Speci ficit y(%) < or = 25 85 19 < or = 30 93 9 (3)Aurora maxwell et al.:J AMA 277: 1452- 1455 (1996 ) (4)Aurora maxwell et al.:J AMA 279: 1542- 1547 (1997 ) (x)Th marin estim ates vary with age, ethni city, famil y histo ry and DENG resul ts. (*)Th e diagn ostic usefu lness of % Free PSA has not been estab lishe d in patie nts with total PSA below 2.6 ng/mL (+)In men with PSA above 10 ng/mL , prost ate cance r risk is deter mined by total PSA alone . The Total PSA value from this assay syste m is stand ardiz ed again st the equim olar PSA stand zoila. The test resul t will be appro ximat luis miguel 20% highe r when westley red to the WHO-s tanda rdize d Total PSA (Siem ens assay ). Westley rison of seria l PSA resul ts shoul d be inter prete d with this fact in mind. PSA was perfo rmed using the Beckm an Coult er Immun oassa y metho d. Value s obtai wai from diffe rent assay metho ds canno t be used inter chaidez eably . PSA level s, regar dless of value , shoul d not be inter prete d as absol edison evide nce of the prese nce or absen ce of disea se. Not Available [facility] [address], [place], [address], 11/10/2023 13:37:45 11/29/19 24 11/29/2023 CBC WBC 7.90 K/? ? ?L 4.23-9 .07 Not Available [address], [address], 11/29/2023 15:27:07 11/29/19 24 11/29/2023 CBC RBC 3.87 M/? ? ?L 4.63-6 .08 low Not Available [address], [address], 11/29/2023 15:27:07 11/29/19 24 11/29/2023 CBC HGB 11.2 g/dL 13.7-1 7.5 low Not Available [address], [address], 11/29/2023 15:27:07 11/29/19 24 11/29/2023 CBC HCT 35.2 % 40.1-5 1.0 low Not Available [address], [address], 11/29/2023 15:27:07 11/29/19 24 11/29/2023 CBC MCV 91.0 fL 79.0-9 2.2 Not Available [address], [address], 11/29/2023 15:27:07 11/29/19 24 11/29/2023 CBC MCH 28.9 pg 25.7-3 2.2 Not Available [address], [address], 11/29/2023 15:27:07 11/29/19 24 11/29/2023 CBC MCHC 31.8 g/dL 32.3-3 6.5 low Not Available [address], [address], 11/29/2023 15:27:07 11/29/19 24 11/29/2023 CBC plt 236 K/? ? ?L 163-33 7 Not Available [address], [address], 11/29/2023 15:27:07 11/29/19 24 11/29/2023 CBC MPV 11.4 fL 9.4-12 .4 Not Available [address], [address], 11/29/2023 15:27:07 11/29/19 24 11/29/2023 CBC neut% 62.5 % 34.0-6 7.9 Not Available [address], [address], 11/29/2023 15:27:07 11/29/19 24 11/29/2023 CBC neut# 4.94 1.78-5 .38 Not Available [address], [address], 11/29/2023 15:27:07 11/29/19 24 11/29/2023 CBC lymph % 23.7 % 21.8-5 3.1 Not Available [address], [address], 11/29/2023 15:27:07 11/29/19 24 11/29/2023 CBC lymph # 1.87 K/? ? ?L 1.32-3 .57 Not Available [address], [address], 11/29/2023 15:27:07 11/29/19 24 11/29/2023 CBC mono% 9.9 % 5.3-12 .2 Not Available [address], [address], 11/29/2023 15:27:07 11/29/19 24 11/29/2023 CBC mono# 0.78 0.30-0 .82 Not Available [address], [address], 11/29/2023 15:27:07 11/29/19 24 11/29/2023 CBC eo% 2.8 % 0.8-7. 0 Not Available [address], [address], 11/29/2023 15:27:07 11/29/19 24 11/29/2023 CBC eo# 0.22 0.04-0 .54 Not Available [address], [address], 11/29/2023 15:27:07 11/29/19 24 11/29/2023 CBC baso% 1.0 % 0.2-1. 2 Not Available [address], [address], 11/29/2023 15:27:07 11/29/19 24 11/29/2023 CBC baso# 0.08 0.00-0 .08 Not Available [address], [address], 11/29/2023 15:27:07 11/29/19 24 11/29/2023 CBC RDW-CV 14.9 % 11.6-1 4.4 high Not Available [address], [address], 11/29/2023 15:27:07 11/29/19 24 11/29/2023 CBC Ig% 0.100 % 0.000- 1.500 Ig % >0.5 Indic ates possi ble Left Shift Not Available [address], [address], 11/29/2023 15:27:07 11/29/19 24 11/29/2023 CBC Ig# 0.010 0.000- 0.093 Not Available [address], [address], 11/29/2023 15:27:07 11/29/19 24 11/29/2023 CBC NRBC% 0.3 % 0.0-0. 2 high Not Available [address], [address], 11/29/2023 15:27:07 11/29/19 24 11/29/2023 CBC NRBC# 0.020 0.000- 0.012 high Not Available [address], [address], 11/29/2023 15:27:07 11/29/19 24 11/29/2023 BASIC METAB OLIC PANEL glucose 84 mg/dL 70-100 Not Available [address], [address], 11/29/2023 15:45:07 11/29/19 24 11/29/2023 BASIC METAB OLIC PANEL BUN 22 mg/dL 7-18 high Not Available [address], [address], 11/29/2023 15:45:07 11/29/19 24 11/29/2023 BASIC METAB OLIC PANEL creatinine 1.1 mg/dL 0.8-1. 3 Not Available [address], [address], 11/29/2023 15:45:07 11/29/19 24 11/29/2023 BASIC METAB OLIC PANEL B/C 20.0 ratio Not Available [address], [address], 11/29/2023 15:45:07 11/29/19 24 11/29/2023 BASIC METAB OLIC PANEL GFR >=60ML /MIN mL/mi n normal >=60m L/min - Cleo l or midly reduc ed <60mL /min- Decre ased kidne y funct ion <15mL /min - Kidne y failu re [facility] calcu lates estim ated Glome rular Filtr ation Rate (eGFR ) using the Chron ic Kidne y Disea se Epide miolo gy Colla borat ion (CKD- EPI) Equat ion (Natalya buenrostro et. al 2020) as recom tj d by the [facility] . eGFR is based on age, serum creat inine , and sex. CKD-E PI does not calcu late eGFR by race, does not apply to child sweta (age <18 years ), and shoul d not be used in pregn jamil. Not Available [address], [address], 11/29/2023 15:45:07 11/29/19 24 11/29/2023 BASIC METAB OLIC PANEL sodium 138 mmol/ L 136-14 5 Not Available [address], [address], 11/29/2023 15:45:07 11/29/19 24 11/29/2023 BASIC METAB OLIC PANEL potassium 4.9 mmol/ L 3.5-5. 1 Not Available [address], [address], 11/29/2023 15:45:07 11/29/19 24 11/29/2023 BASIC METAB OLIC PANEL chloride 101 mmol/ L 96-107 Not Available [address], [address], 11/29/2023 15:45:07 11/29/19 24 11/29/2023 BASIC METAB OLIC PANEL anion gap 10.7 5.0-15 .0 Not Available [address], [address], 11/29/2023 15:45:07 11/29/19 24 11/29/2023 BASIC METAB OLIC PANEL CO2 26 mmol/ L 21-32 Not Available [address], [address], 11/29/2023 15:45:07 11/29/19 24 11/29/2023 BASIC METAB OLIC PANEL calcium 8.7 mg/dL 8.5-10 .3 Not Available [address], [address], 11/29/2023 15:45:07 04/15/20 23 elect anna ramseygr am No observ ation record ed. [facility] Not Available 2022 17:52:05 02/28/20 24 02/28/2024 XR, chest CLINIC AL HISTOR Y: Cough. TECHNI QUE: Fronta l view of the chest obtain ed. COMPAR REG: None. FINDIN GS: Heart is not enlarg ed. There is a bipola r cardia c pacer presen t with genera tor in the left anteri or chest wall and leads termin ating over the right atrium and right ventri tim. There is valve replac ement presen t. Multip le sterna l wires are seen. There is no hilar or medias tinal enlarg ement. There is patchy airspa ce diseas e in the left lower lobe consis tent with infilt rate. The bony thorax is intact . IMPRES CLAUDIA: Left lower lobe infilt rate. Other findin gs as above. Readjenifer sierra Physic blanca: Anuj Sh[facility] (Imaging) [address] [place], [address], 02/28/2024 16:38:21 06/20/20 24 06/20/2024 XR, chest CLINIC AL HISTOR Y: Left lower lobe infilt rate on previo us chest radiog raph. Follow -up. TECHNI QUE: Fronta l view and latera l view of the chest obtain ed. COMPAR REG: [id number] FINDIN GS: The patien t is status post median sterno nelson and valve replac ement. There is a left-s ided cardia c conduc tion device . The heart is normal in size and config uratio n.Ther e is no hilar or medias tinal enlarg ement. There is no focal lung consol idatio n or infilt rate. The bony thorax is intact . IMPRES CLAUDIA: No acute diseas e. Resolu tion of left lower lobe infilt rate. Mag sierra Physic blanca: Jas Sandoval [facility] (Imaging) [address] [place], [address], 06/24/2024 17:53:00 Result Notes None recorded. Problems Name Problem SNOMED Code Status Onset Date Resolution Date Notes Provider Name and Address Organization Details Recorded Time Benign prostatic hyperplasi a with outflow obstructio n 673642399 Active Yo Meza MD [address] [place] [address] [place], [address], [facility] 3 09:41:33 Diffuse non-Hodgki n's lymphoma 782073678 Active 1978- resolved. no longer surveilled . Yo Meza MD [address] [place] [address] [place], [address], [facility] 6 14:20:59 Dyspnea 861110941 Active FEDERICO Wesley [address] [place], [place] [address]Diaz [place], 1, [facility] 5 09:46:44 Functional asplenia 48629477 Active surgical removal. for nonhodkins lymphoma Yo Meza MD [address] [place] [address] [place], [address], [facility] 3 09:59:24 Systolic murmur 63293865 Active FEDERICO Wesley [address] [place], [place] [address]Diaz [place], 1, [facility] 4 08:39:08 Anemia 170086140 Active Yo Meza MD [address] [place], [place] [address]Diaz [place], 1, [facility] 5 17:38:01 Aortic valve stenosis 97137764 Active 2016 MR, mild, dilated LA, mod , mildy dilated RA. Rpt. Echo due 2018. 05/11/2023- seeb by cardioly RN Pre-op, Plan for left and right cardiac catherizat ion for surgical planning of valve replacemen t Esha flores LPN [facility] 3 11:34:08 Atrioventr icular block 480552085 Active 2016 pacer 2014 Yo Meza MD [address] [place] [address] [place], [address], [facility] 3 09:41:33 Bilateral hearing loss 38953614 Active 2019 uses hearing aids MD Cristhian Mccull[place], [address], [facility] 3 09:41:33 Prostate specific antigen outside reference range 929393240 Active 2019 MD Cristhian Mccullough [place], [address], [facility] 0 12:13:25 Sick sinus syndrome 27739079 Active 2021 Yo Meza MD [address] [place] [address] [place], [address], [facility] 2 10:04:12 History of non-Hodgki ns lymphoma 069874716 Active 2021 MD Cristhian Mccullough [place], [address], [facility] 3 09:41:33 Mitral valve stenosis 13323305 Active 2022 Esha flores, UNDERGROUND HEAVY EQUIPMENT OPERATOR null, [facility] 3 11:32:11 Coronary arterioscl erosis 88753050 Active 2022 CABG to RCA 06/17/2023 MD Cristhian [place]ccullough [place], [address], [facility] 4 08:57:15 Coronary atheroscle rosis 210405233 Active 2023 MD Cristhian Mccullough [place], [address], [facility] 4 09:54:09 Biologic cardiac valve prosthesis in situ 258920795 Active 2023 MD Cristhian Mccullough [place], [address], [facility] 4 09:54:12 Aortic aneurysm 24844155 Active 2023 Yo Fein[place], [place], [address], [facility] 4 10:05:08 Hypercoagu lability state 28549694 Active 2023 MD [place], [address], [facility] 4 09:58:41 Paroxysmal atrial flutter 413635124 Active 2023 MD [place], [address], [facility] 4 09:09:52 Problem Notes None recorded. Procedures Surgical History Date Name Laterality Status Provider Name and Address Organization Details Recorded Time 12/26/19 24 Medicare Wellness Visit completed Melinda Gant CMA [facility] 12/26/2023 09:21:27 12/26/19 24 Advanced Care Planning completed Melinda Gant [facility] 12/26/2023 09:21:30 07/20/19 24 Removal of foreign body from ear canal completed MD [place], [address], [facility] 07/20/2023 20:58:28 06/17/20 23 Cabg vein single completed Yo Meza MD [facility] [place], [address], [facility] 06/20/2023 12:48:58 06/17/20 23 repair of aortic valve completed [place], [address], [facility] 06/20/2023 12:49:25 06/17/20 23 repair of mitral valve with prosthesis completed [place], [address], [facility] 06/20/2023 12:49:44 12/21/19 23 Medicare Wellness Visit completed Melinda Gant [facility] 12/20/2022 09:11:12 11/19/19 22 Medicare Wellness Visit completed Melinda Gant CMA [facility] 11/18/2021 08:58:54 11/19/19 22 Alcohol use screening completed Melinda Gant [facility] 11/18/2021 08:58:54 11/19/19 22 Cardiovascular disease risk reduction counseling completed Melinda Gant [facility] 11/18/2021 08:58:55 11/19/19 22 Advanced Care Planning completed Yo Meza MD [address] [place], [address], [facility] 11/18/2021 09:47:31 07/02/20 20 Medicare Wellness Visit completed Yessy buenrostro [facility] 07/02/2020 11:19:34 07/02/20 20 prevention-cardiov ascular risk reduction counseling completed Yessy buenrostro [facility] 07/02/2020 11:19:34 07/02/20 20 prevention-annual alcohol misuse screening completed Yessy buenrostro [facility] 07/02/2020 11:19:34 06/29/20 19 Medicare Wellness Visit completed Cristela Flores [facility] 06/26/2019 11:11:35 06/29/20 19 Advanced Care Planning completed Cristela Flores [facility] 06/26/2019 11:11:47 11/14/19 19 Punch Biopsy completed Yo Meza MD [address] [place], [address], [facility] 11/13/2018 11:12:45 12/27/19 18 45897: Therapeutic Exercise completed Lynda Rice Ms, PT [address] [place], [address], [facility] 12/26/2017 10:03:49 12/27/19 18 Treatment and Advice completed Lynda Rice Ms, PT [address] [place], [address], [facility] 12/26/2017 09:56:12 12/23/19 18 47156: Therapeutic Exercise completed Lynda Rice Ms, PT [address] [place], [address], [facility] 12/22/2017 13:24:58 12/23/19 18 Treatment and Advice completed Lynda Rice Ms, PT [address] [place], [address], [facility] 12/22/2017 13:26:07 12/20/19 18 63751: Therapeutic Exercise completed Lynda Rice Ms, PT [address] [place], [address], [facility] 12/19/2017 10:05:06 12/20/19 18 93558: Manual Therapy completed Lynda Rice Ms, PT [address] [place], [address], [facility] 12/19/2017 10:06:32 12/20/19 18 Treatment and Advice completed Lynda Rice Ms, PT [address] [place], [address], [facility] 12/19/2017 10:06:05 12/16/19 18 70240: Therapeutic Exercise completed Lynda Rice Ms, PT [address] [place], [address], [facility] 12/15/2017 10:29:41 12/16/19 18 Treatment and Advice completed Lynda Rice Ms, PT [address] [place], [address], [facility] 12/15/2017 10:32:03 12/13/19 18 04477: Therapeutic Exercise completed Lynda Rice Ms, PT [address] [place], [address], [facility] 12/12/2017 11:52:18 12/13/19 18 Treatment and Advice completed Lynda Rice Ms, PT [address] [place], [address], [facility] 12/12/2017 11:58:21 12/09/19 18 99772: Therapeutic Exercise completed Lynda Rice Ms, PT [address] [facility] [place], [address], [facility] 12/08/2017 09:37:33 12/09/19 18 Treatment and Advice completed Lynda Rice Ms, PT [address] [place], [address], [facility] 12/08/2017 10:02:41 12/06/19 18 13680: Therapeutic Exercise completed Lynda Rice Ms, PT [address] [place], [address], [facility] 12/05/2017 10:01:53 12/06/19 18 Treatment and Advice completed Lynda Rice Ms, PT [address] [place], [address], [facility] 12/05/2017 10:02:25 12/03/19 18 04933: Therapeutic Exercise completed Lynda Rice Ms, PT [address] [place], [address], [facility] 12/02/2017 10:06:20 12/03/19 18 Treatment and Advice completed Lynda Rice Ms, PT [address] [place], [address], [facility] 12/02/2017 10:06:48 11/30/19 18 Physical Activity Counselling completed Lynda Rice Ms, PT [address] [place], [address], [facility] 11/29/2017 10:42:28 11/30/19 18 65784: PT Eval Low Complexity completed Lynda Rice Ms, PT [address] [place], [address], [facility] 11/29/2017 10:42:24 11/30/19 18 Treatment and Advice completed Lynda Rice Ms, PT [address] [place], [address], [facility] 11/29/2017 10:43:34 Appendectomy completed ANA Wesley-KEYLA [address] [place], [address], [facility] 04/12/2014 15:37:13 Splenectomy completed Yo Meza MD [address] [place] [address], [address], [facility] 06/09/2015 15:39:49 Imaging Results Imaging Date Name Status LastModified by Organization Details LastModified Time 04/15/2023 [facility] 04/15/2023 17:52:05 02/28/2024 XR, chest completed [facility] (Imaging) [address] [place], [address], 02/28/2024 16:38:21 06/20/2024 XR, chest completed [facility] (Imaging) [address] [place], [address], 06/24/2024 17:53:00 Procedure Notes None recorded. Medical Equipment None Reported. Allergies No known drug allergies Medications Name Sig Start Date Stop Date Status Note LastModified by Organization Details LastModified Time amoxicillin 500 mg capsule 06/20 completed Not Available Not Available Not Available furosemide 40 mg tablet TAKE 1 TABLET BY MOUTH DAILY. TAKE FOR 3 DAYS THEN STOP. DO NOT START BEFORE JUNE 22, 2023. 07/20 completed Not Available Not Available Not Available latanoprost 0.005 % eye drops INSTILL 1 DROP INTO BOTH EYES AT BEDTIME 12/20 completed Not Available Not Available Not Available doxycycline hyclate 100 mg capsule TAKE 1 CAPSULE TWICE A DAY BY ORAL ROUTE, FOR PNEUMONIA . 06/20 completed Not Available Not Available Not Available atorvastati n 20 mg tablet TAKE 1 TABLET BY MOUTH EVERY DAY active Not Available Not Available No t Available Low-Dose Aspirin 81 mg tablet Take by oral route. 12/25 completed Not Available Not Available Not Available ibuprofen 800 mg tablet 06/26 completed Not Available Not Available Not Available potassium chloride ER 10 mEq tablet,exte nded release PLEASE SEE ATTACHED FOR DETAILED DIRECTION S 07/20 completed Not Available Not Available Not Available ciprofloxac in 250 mg tablet active Not Available Not Available Not Available ciprofloxac in 500 mg tablet active Not Available Not Available Not Available sulfamethox azole 800 mg-trimetho prim 160 mg tablet active Not Available Not Available Not Available ketorolac 0.5 % eye drops 12/20 completed Not Available Not Available Not Available oxycodone-a cetaminophe n 5 mg-325 mg tablet active Not Available Not Available No t Available hydromorpho ne 2 mg tablet TAKE 1 TABLET (2 MG) BY MOUTH 4 TIMES A DAY EVERY 6 HOURS NEEDED FOR SEVERE PAIN MAX DAILY: 8 MG 12/25 completed Not Available Not Available Not Available tamsulosin 0.4 mg capsule TAKE 1 CAPSULE BY MOUTH EVERYDAY AT BEDTIME 12/20 completed Not Available Not Available Not Available metoprolol succinate ER 25 mg tablet,exte nded release 24 hr TAKE 1 TABLET BY MOUTH EVERY DAY active Not Available Not Available No t Available doxycycline hyclate 100 mg tablet 06/29 completed Not Available Not Available Not Available diazepam 5 mg tablet active Not Available Not Available No t Available amoxicillin 875 mg-potassiu m clavulanate 125 mg tablet TAKE 1 TABLET EVERY 12 HOURS BY ORAL ROUTE, FOR PNEUMONIA . 06/20 completed Not Available Not Available Not Available oxycodone 5 mg tablet 06/26 completed Not Available Not Available Not Available Low Dose Aspirin 81 mg tablet,cherry yed release Take 1 tablet every day by oral route. 07/20 completed Not Available Not Available Not Available Fish Oil active Not Available Not Avai lable Not Available iron active once a day Not Available Not Available Not Available peg 3350-electr olytes 236 gram-22.74 gram-6.74 gram-5.86 gram solution active Not Available Not Available Not Available Eliquis 5 mg tablet TAKE 1 TABLET BY MOUTH TWICE A DAY active Not Available Not Available No t Available Vitals Date Recorded Body height Body mass index (BMI) Body weight Heart rate Systolic blood pressure Diastolic blood pressure Provider Name and Address Organization Details Last Updated DateTime 3 173.99 cm 30.7 kg/m2 68106.4 4 g 62 /min 128 mm[Hg] 78 mm[Hg] Melinda Gant [facility] 3 09:18:38 Date Recorded Body height Body mass index (BMI) Body weight Oxygen saturation Oxygen saturation in Arterial blood by Pulse oximetry Heart rate Systolic blood pressure Diastolic blood pressure Provider Name and Address Organization Details Last Updated DateTime 4 173.99 cm 30.1 kg/m2 77101.0 7 g 100 % 100 % 68 /min 132 mm[Hg] 68 mm[Hg] Melinda Gant [facility] 4 09:28:15 Date Recorded Body height Body mass index (BMI) Body weight Heart rate Systolic blood pressure Diastolic blood pressure Provider Name and Address Organization Details Last Updated DateTime 4 180.34 cm 28.5 kg/m2 56569.8 4 g 63 /min 142 mm[Hg] 90 mm[Hg] Karie Meier RN [facility] 4 16:43:44 Date Recorded Body height Body mass index (BMI) Body weight Heart rate Systolic blood pressure Diastolic blood pressure Systolic blood pressure Diastolic blood pressure Provider Name and Address Organization Details Last Updated DateTime 4 180.34 cm 28.7 kg/m2 50659.0 3 g 62 /min 116 mm[Hg] 69 mm[Hg] 128 mm[Hg] 82 mm[Hg] Melinda Gant [facility] 4 09:30:13 Date Recorded Body height Body mass index (BMI) Body weight Oxygen saturation Oxygen saturation in Arterial blood by Pulse oximetry Heart rate Body temperature Systolic blood pressure Diastolic blood pressure Provider Name and Address Organization Details Last Updated DateTime 4 180.34 cm 27.2 kg/m2 44947.5 1 g 92 % 92 % 98 /min 100.1 [degF] 108 mm[Hg] 68 mm[Hg] Melinda Gant [facility] 4 14:13:44 Date Recorded Body height Body mass index (BMI) Body weight Heart rate Oxygen saturation Oxygen saturation in Arterial blood by Pulse oximetry Systolic blood pressure Diastolic blood pressure Provider Name and Address Organization Details Last Updated DateTime 4 180.34 cm 28.6 kg/m2 10022.1 4 g 65 /min 99 % 99 % 118 mm[Hg] 68 mm[Hg] Anne Gary [facility] 4 08:48:37 Date Recorded Systolic blood pressure Diastolic blood pressure Provider Name and Address Organization Details Last Updated DateTime 12/22/2022 135 mm[Hg] 71 mm[Hg] Harini Lu RN [facility] 12/22/2022 14:22:34 Date Recorded Systolic blood pressure Diastolic blood pressure Provider Name and Address Organization Details Last Updated DateTime 03/30/2023 142 mm[Hg] 70 mm[Hg] Susan Glass RN [facility] 03/30/2023 15:34:15 Date Recorded Systolic blood pressure Diastolic blood pressure Provider Name and Address Organization Details Last Updated DateTime 09/14/2024 126 mm[Hg] 78 mm[Hg] Jael Lozada LPN [facility] 09/14/2024 12:15:39 Social History Question Answer Notes LastModified by Organizat ion Details LastModified Time Tobacco Smoking Status Never Smoker ALISSA Poole, [facility] 04/12/2014 14:45:56 What Is Your Level Of Alcohol Consumption? Moderate 4 -6 Drinks Per Week- Only Weekends. Information not available 02/04/2015 Do You Wear A Helmet When Biking? Yes Information not available 07/02/2020 What Is Your Level Of Caffeine Consumption? Moderate 1-2 Cups Of Coffee Daily Information not available 07/02/2020 What Type Of Diet Are You Following? REGULAR Lots Of Fruits, Vegetables, And Nuts Information not available 07/02/2020 Do You Or Have You Ever Used E-cigarettes Or Vape? 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 20 Information not available 06/09/2015 Live Alone Or With Others? Alone Information not available 04/12/2014 CCM Consent Discussion 05/21/2022 stpick Information not available 06/14/2022 Marital Status Informatio n not available 04/12/2014 Mosquito Repellent Used Routinely No Information not available 07/02/2020 What Was The Date Of Your Most Recent Tobacco Screening? 12/26/2023 Information not available 12/26/2023 How Many Children Do You Have? 0 Information not available 04/12/2014 What Is Your Relationship Status? Information not available 05/21/2022 Seat Belts Used Routinely Yes Information not available 06/26/2018 Smoke Alarm In Home Yes Information not available 06/26/2018 Do You Or Have You Ever Used Smokeless Tobacco? Never Used Smokeless Tobacco Information not available 07/02/2020 General Stress Level Low Information not available 07/02/2020 Do You Use Sunscreen Routinely? No Information not available 07/02/2020 Sex: Unknown Functional Status None recorded. Mental Status None recorded. Family History Relationship Description Onset Age of this Age Resolved Age Notes LastModified by Organization Details LastModified Time Mother Well adult [facility] Not availa ble 06/09/2015 15:37:26 Father Alcoholism 80 heavy smoker [facility] Not available 06/09/2015 15:37:26 Brother Benign prostatic hyperplasia with outflow obstruction [facility] Not available 01/2015 15:37:26 Brother Aortic aneurysm Aortic disect ion. [facility] Not available 07/02/2020 11:55:34 Notes:mother age 99 in 2019. He is in the middle of nine children. 6 boys, 3 girls Medical History Condition Response Pacemaker Y CANCER Y CARDIOVASCULAR Y Colon Polyps Y Immunizations Vaccine Type Date Status Note Provider Nam e and Address Organization Details Recorded Time Pneumococcal conjugate PCV 13 9 completed Not Available [facility] 07/21/2019 02:23:37 Past Encounters Encounter ID Performer Location Encounter Start Date Encounter Closed Date Diagnosis/Indication Diagnosis SNOMED-CT Code Diagnosis ICD10 Code Diagnosis Note [id number] Grazyna Le , [facility], OFFICE [address] [place] [address] 04/12/2014 14:30:18 04/12/2014 15:46:26 Adult health examination [id number] see Risk Assessment and Lifestyle Change Counseling section above Counseling 027323107 Diffuse no n-Hodgkin's lymphoma 103757381 Dyspnea 810588581 [id number] , [facility], OFFICE [address] [place] [address] 05/28/2014 07:51:46 05/28/2014 08:40:24 Dyspnea 917715678 Diffuse no n-Hodgkin's lymphoma 971389799 recheck for change in HGB/HCT in 5 weeks, since starting iron supplement Benign pro static hyperplasia with outflow obstruction 510814299 release old medical records so we can see the alf trend. [id number] FEDERICO Wesley , [facility], OFFICE [address] [place] [address] 02/04/2015 08:46:51 02/04/2015 09:46:30 Lifestyle [id number] [facility] [id number] [facility] [id number] Yo Meza MD , [facility], OFFICE [address] [place] [address] 06/09/2015 14:48:48 06/09/2015 16:48:12 Adult health examination 766808255 Z00.00 see Risk Assessment and Lifestyle Change Counseling section above Counseling 618080088 Z71 .9 Macrocytic anemia 440222 05 D53.9 [id number] Yo Meza MD , [facility], OFFICE [address] [place] [address] 6 06/14/2016 13:33:27 06/14/2016 14:42:24 Adult health examination 933062183 Z00.00 see Risk Assessment and Lifestyle Change Counseling section above Counseling 562218132 Z71 .9 Bilateral hearing loss 56345291 H91.93 Prostate s pecific antigen outside reference range 757912233 R97.20 Lipoma 93550538 D17.9 [id number] Yo Meza MD , [facility], OFFICE [address] [place] [address] 6 06/24/2017 15:29:58 06/24/2017 16:35:09 Adult health examination 025241848 Z00.00 see Risk Assessment and Lifestyle Change Counseling section above Counseling 976625476 Z71 .9 Functional asplenia 3809 6003 Q89.01 Atrioventr icular block 395055601 I44.30 Aortic jim ve sclerosis 24336437 I35.8 [id number] Lynda Dwayne Ms, PT Physical Therapy, [address] [address] 11/29/2017 09:25:00 11/29/2017 11:33:23 Knee pain 15128471 M25.562 History of arthroscopy of knee joint 320308970 Z98.656 [id number] Lynda Dwayne Levi, PT Physical Therapy, [address] [address] 12/02/2017 09:21:29 12/02/2017 11:04:37 Knee pain 10221568 M25.562 History of arthroscopy of knee joint 858072724 Z98.455 [id number] Lynda Rice Ms, PT Physical Therapy, [address] [address] 12/05/2017 09:05:44 12/05/2017 12:36:21 Knee pain 29546385 M25.562 History of arthroscopy of knee joint 338327453 Z98.790 [id number] Lynda Rice Ms, PT Physical Therapy, [address] [address] 12/08/2017 09:27:11 12/08/2017 11:45:47 Knee pain 49723991 M25.562 History of arthroscopy of knee joint 085754692 Z98.049 [id number] Lynda Rice Ms, PT Physical Therapy, [address] [address] 12/12/2017 10:25:58 12/12/2017 12:02:40 Knee pain 69170111 M25.562 History of arthroscopy of knee joint 029459555 Z98.784 [id number] Lynda Rice Ms, PT Physical Therapy, [address] [address] 12/15/2017 09:02:02 12/15/2017 11:37:21 Knee pain 72689511 M25.562 History of arthroscopy of knee joint 930531933 Z98.805 [id number] Lynda Rice Ms, PT Physical Therapy, [address] [address] 12/19/2017 09:06:36 12/19/2017 12:28:57 Knee pain 11581903 M25.562 History of arthroscopy of knee joint 672449308 Z98.968 [id number] Lynda Rice Ms, PT Physical Therapy, [address] [address] 6 12/22/2017 09:02:34 12/22/2017 13:46:19 Knee pain 94052913 M25.562 History of arthroscopy of knee joint 583137200 Z98.477 [id number] Lynda Rice Ms, PT Physical Therapy, [address] [address] 12/26/2017 09:05:16 12/26/2017 14:33:24 Knee pain 64723970 M25.562 History of arthroscopy of knee joint 726022199 Z98.331 [id number] Yo Meza MD , [facility], OFFICE [address] [place] [address] 6 06/26/2018 11:00:28 06/28/2018 14:20:23 Adult health examination 052350592 Z00.00 see Risk Assessment and Lifestyle Change Counseling section above Counseling 096090366 Z71 .9 Depression screening 171 165844 Z13.89 depression screening tool administer ed, entered into emr Atrioventr icular block 548063282 I44.30 Aortic valve stenosis 60 954372 I35.0 Functional asplenia 3809 6003 Q89.01 [id number] MD DARLENE Isaacs, [facility], OFFICE [address] [place] [address] 6 10/30/2018 11:05:05 10/30/2018 11:40:42 Active or passive immunization 931786899 Z23 Foreign ramón dy in right ear 8734916123 5910384 T16.1XXA [id number] MD DARLENE Mccullough, [facility], OFFICE [address] [place] [address] 11/13/2018 09:58:58 11/13/2018 11:16:41 Neoplasm of uncertain behavior of skin 21990689 D48.5 Lipoma of skin 185551990 D17.30 [id number] Yo Meza MD , [facility], OFFICE [address] [place] [address] 6 06/29/2019 13:30:39 06/29/2019 14:55:10 Counseling 552957892 Z71.9 Hearing loss 49236773 H9 1.93 Aortic valve stenosis 60 363214 I35.0 please obtain the echo next time. Adult heal th examination 288463822 Z00.00 see Risk Assessment and Lifestyle Change Counseling section above [id number] MD DARLENE Mccullough, [facility], OFFICE [address] [place] [address] 6 07/02/2020 11:20:17 07/03/2020 14:39:00 Adult health examination 103305288 Z00.00 see Risk Assessment and Lifestyle Change Counseling section above Counseling 274473770 Z71 .9 including cardiovasc ular risk reduction counseling Depression screening 171 Z13.89 depression screening tool administer ed, entered into emr, scored and discussed, Screening for alcohol abuse 364916974 Z13.39 Aortic valve stenosis 60 235927 I35.0 please obtain the echo next time. Functional asplenia 3809 6003 Q89.01 ? mildly immune compromise d from this. Screening for malignant neoplasm of colon 317669117 Z12.11 Referral for a DIRECT booked colonoscop y. This patient is a healthy ASA Class 1 or 2 patient (only mild systemic disease), or a STABLE, well controlled insulin dependent diabetic. They do not have serious cardiac disease ie OH/angiopl asty within 1 year, symptomati c CHF; renal failure with CKD 4 or 5; take Coumadin, Plavix, Aggrenox, etc. Prostate s pecific antigen outside reference range 630037179 R97.20 [id number] Yo Meza MD , [facility], [address] [place] [address] 11/18/2021 08:56:15 11/18/2021 09:49:16 Adult health examination 692006943 Z00.00 see Risk Assessment and Lifestyle Change Counseling section above Counseling 481880728 Z71 .9 including cardiovasc ular risk reduction counseling Depression screening 171 Z13.31 depression screening tool administer ed, entered into emr, scored and discussed Screening for alcohol abuse 677019252 Z13.39 Screening for malignant neoplasm of colon 253913564 Z12.11 Referral for a DIRECT booked colonoscop y. This patient is a healthy ASA Class 1 or 2 patient (only mild systemic disease), or a STABLE, well controlled insulin dependent diabetic. They do not have serious cardiac disease ie OH/angiopl asty within 1 year, symptomati c CHF; renal failure with CKD 4 or 5; take Coumadin, Plavix, Aggrenox, etc. going to see Dr. Maldonado in [place]. Active or passive immunization 396013189 Z23 Patient declines PPV23, Shingles, and FLU vaccine tv Advance di rective discussed with patient 873195566 Z71.89 Discussed with patient. Rec:Health care agent. Aortic valve stenosis 60 407517 I35.0 following w/ cardiol. Dr. Rojo [facility] cardiol. Prostate s pecific antigen above reference range 401635614 R97.20 Discussed seeing uologist. will follow for now per our discussion . Sensorineu ral hearing loss of bilateral ears 354626750 H90.3 Anemia 255410120 D64.9 mild- seeing dr. Joel MARLEY Impaired f asting glycemia 398662808 R73.01 [id number] Yo Meza MD , [facility], [address] [place] [address] 05/21/2022 09:17:59 05/21/2022 10:20:29 Active or passive immunization 462278361 Z23 Patient declines PPV23, Shingles, and FLU vaccine tv Sick sinus syndrome 3608 3008 I49.5 contniiue pacer. Everardo hematuria 21334253 5 R31.0 getting cystoscopy Prostate s pecific antigen above reference range 435148704 R97.20 seeing urol. Anemia 137996455 D64.9 mild- seeing dr. Maldonado GI- neg colo. repeat 10 yrs History of non-Hodgkins lymphoma 759172644 Z85.72 age 27. [id number] Yo Meza MD , [facility], [address] [place] [address] 08/20/2022 09:28:22 08/20/2022 10:07:44 Active or passive immunization 029327889 Z23 Patient declines PPV23, Shingles, and FLU vaccine tv Aortic valve stenosis 60 769875 I35.0 following w/ cardiol. Dr. Rojo [facility] cardiol. getting echo. Cardiac pa cemaker in situ 473993431 Z95.0 sees cardio Everardo hematuria 49336791 5 R31.0 scope looked good. Glaucoma 05613393 H40.9 giong for SLT. Atrioventr icular block 079222514 I44.30 Benign pro static hyperplasia with outflow obstruction 854999181 N40.1 continiue foloowing with specilist. Anemia 561158898 D64.9 mild- seeing dr. Maldonado GI- neg colo. repeat 10 yrs--likel y from the hematuria. Elevated blood-pressure reading without diagnosis of hypertension 599315988 R03.0 Doing well , no BP meds needed. At goal of less than 130/80 [id number] Yo Meza MD , [facility], [address] [place] [address] 12/20/2022 08:50:50 12/20/2022 09:50:04 Adult health examination 831884344 Z00.00 see Risk Assessment and Lifestyle Change Counseling section above Depression screening 171 883076 Z13.31 depression screening tool administer ed Screening for alcohol abuse 306042212 Z13.39 Alcohol use screening tool administer ed Screening for malignant neoplasm of prostate 071903817 Z12.5 PSA testing for ages 55-69 risks and benefits discussed {{patient declines testing te st ordered}}. Active or passive immunization 271085114 Z23 Patient declines PPV23, Shingles, and FLU vaccine tv Aortic valve stenosis 60 887528 I35.0 following w/ cardiol. Dr. Rojo [facility] cardiol. getting echo. Sick sinus syndrome 3608 3008 I49.5 contniiue pacer. [id number] Yo Meza MD , [facility], [address] [place] [address] 07/20/2023 09:13:12 07/22/2023 08:12:52 Active or passive immunization 234729192 Z23 Patient declines PPV23, Shingles, and FLU and the TD today Biologic c ardiac valve prosthesis in situ 806029934 Z95.3 Doing well. s/p mitral and aortic valve. Atrioventr icular block 544274824 I44.30 pacer . Coronary arteriosclerosis 75230349 I25.10 CABG to RCA.. Discussed cardiac rehab. States got referreal from [place]. to [facility]. continue metorporlo l, aspirin, lipitor. Aortic aneurysm 86362624 I71.9 3 cm Likely they will follow in cardiol. Pt to let us know. Foreign body in ear 7544 1006 T16.1XXA removed with allegator forceps [id number] Yo Meza MD , [facility], [address] [place] [address] 12/26/2023 08:44:42 12/26/2023 10:00:03 Adult health examination 403288185 Z00.00 see Risk Assessment and Lifestyle Change Counseling section above Depression screening 171 109520 Z13.31 depression screening tool administer ed Screening for alcohol abuse 989628801 Z13.39 Alcohol use screening tool administer ed Advance di rective discussed with patient 327694592 Z71.89 Active or passive immunization 505920778 Z23 Patient declines PPV23, Shingles, and FLU and the TD today Biologic c ardiac valve prosthesis in situ 214888549 Z95.3 Doing well. s/p mitral and aortic valve. Atrioventr icular block 600112899 I44.30 pacer . Coronary arteriosclerosis 63100947 I25.10 CABG to RCA.. Discussed cardiac rehab. States got referreal from [place]. to [facility]. continue metorporlo l, aspirin, lipitor. Aortic aneurysm 45023999 I71.9 3 cm Likely they will follow in cardiol. Pt to let us know. Foreign body in ear 7544 1006 T16.1XXA removed with allegator forceps [id number] Yo Meza MD , [facility], [address] [place] [address] 02/28/2024 13:59:24 02/28/2024 15:59:33 Productive cough 82532990 R05.9 with 3 normal covid tests. suspect community acquired pneumonia vs bronchitis . rec: Abx. check x-ray. likely treat with amox-Clav Plus Doxy X-ray looks patchy . told pt to go home and wait for officeal reading. idead patchy LLL pneumonia will call in abx pt ifnormed Dyspnea on exertion 6084 5006 R06.09 Left lower zone pneumonia 214769496 J18.1 [id number] Yo Meza MD , [facility], [address] [place] [address] 06/20/2024 08:38:12 06/20/2024 15:41:56 Active or passive immunization 040716599 Z23 Patient declines PPV23, ShinglesFL UTd/Tdap Left lower zone pneumonia 304754154 J18.1 f/u with x-ray Aortic valve stenosis 60 840727 I35.0 following w/ cardiol. Dr. Rojo [facility] cardiol. getting echo. Atrioventr icular block 551607533 I44.30 pacer . going to have battery replaced. Coronary arteriosclerosis 48522381 I25.10 06/2023 CABG to RCA.. Discussed cardiac rehab. seeing cardiol. continue metorporlo llipitor. on eliquis for the volve Paroxysmal atrial flutter 096748181 I48.92 Had 6 months after the revascular ization and tissue valves. Will follow and if after a few years no aflutter then ? off the Eliquis. Health Concerns Section Related Observation LastModified by Organization Detai ls LastModified Time None Recorded Concern Status LastModified by Organization Details LastModified Time None Recorded Advance Directives Directive None Recorded Payers Encounter Date Sequence Insurance Name Policy Number Policy Mcdowell Covered Member ID Mcdowell Member ID Guarantor Name 12/20/2022 1 [employer] (MEDICARE REPLACEMENT PPO) [id number] 1 Jason Barnett [id number] Jason Barnett 07/20/2023 1 [employer] (MEDICARE REPLACEMENT PPO) [id number] Jason Barnett [id number] Jason Barentt 12/26/2023 1 [employer] (MEDICARE REPLACEMENT PPO) [id number] Jason Barnett [id number] Jason Barnett 02/28/2024 1 [employer] (MEDICARE REPLACEMENT PPO) [id number] 1 Jason Barnett [id number] Jason Barnett 06/20/2024 1 [employer] (MEDICARE REPLACEMENT PPO) [id number] Jason Barnett [id number] Jason Barnett Notes Date Note Type Note Provider Name and Address Organization Details Recorded Time 12/20/2022 text/html Risk Assessment and Lifestyle Change Counseling 65+ (Medicare)Reported bypatient.Safety Risk Assessment:No grab bars in bathroom; Has rails on steps; No falls; No evidence of abuse/neglect Functional Status:Patient does not have trouble hearing the television or radio when others do not.; Patient does not have to strain or struggle to hear/understand conversations; Patient does not need help with preparing meals, transportation, shopping, taking medicine, managing finances, or other activities of daily living.; Patient does not have visual loss that interferes with daily activities; Patient reports no falls in the past 6 months. 67 yo male here for wellness. Seeing Dr. Hernandez urology- Had benign bladder mass. urinary frequency is better. No longer needing eyedrops after having Trabeculectomy Dr. Gibbs. 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 Goes to [facility] often- family there. Some SOB lightheaded , has aortic stenosis , Seeing Dr. Rojo [facility] cardiol. Has pacer for AV block. Eating better, smoothie with nuts, flax seed, rare red meat. MVI, fish oil.,3-7 beers a week , no more than 32beers in a day. Exercise- Walking 3-5 miles a day. Using recumbant bike. Strength training, 3-4 miles cyling a day. in the house. Studying [employer] [employer]. on [employer]. Guido harris. On line. Yo Meza MD [address] [place] [address], [phone], [facility] 12/20/2022 09:46:20 07/20/2023 text/html Patient is here for follow-up he is status post 2 valve repairs both the mitral and the aortic with a tissue valve as well as a one-vessel bypass to the right coronary artery. Since then feels better- no lightheaded. Had procedure in [place]. On lipitor and metoprolol. new and aspirin. Was told has descending Aortic aneurism 3 cm. c/o ear itching . putting tissue in there, feels funny now. Yo Meza MD [address] [place] [address], [phone], [facility] 07/20/2023 21:03:50 12/26/2023 text/html 68 yo male here for wellness. 06/2023 Had tissue valve Mitral and Aortic and 1 V CABG he is status post 2 valve repairs both the mitral and the aortic with a tissue valve as well as a one-vessel bypass to the right coronary artery.Had procedure in [place].On lipitor and metoprolol. new and aspirin. Was told has descending Aortic aneurism 3 cm. Pacer check in September- Had pacer for AV block. Pacer check showed aflutter. ElliquisHad cardioversion October and no SOB since. Seeing Dr. Hernandez urology- Had benign bladder mass. urinary frequency is better. recheck fine. PSA 2.2 11/09/23 No longer needing eyedrops after having Trabeculectomy Dr. Gibbs. 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 Goes to [employer] [place] often- family there. Eating well. smoothie with nuts, flax seed, rare red meat. MVI, fish oil.1-2 beers a week. Exercise- Using recumbant statonary bike. Rowing, weights, planks. treadmill. Strength training, 3-4 miles cyling a day. in the house. Was studying [employer] [employer]. on [employer]. Guido harris. On line. Yo Meza MD [address] [place] [address], [phone], [facility] 12/26/2023 09:56:59 12/26/2023 text/html Risk Assessment and Lifestyle Change Counseling (Medicare)Reported bypatient.Safety Risk Assessment:No grab bars in bathroom; Has rails on steps; No falls; No evidence of abuse/neglect Functional Status:Patient does not have trouble hearing the television or radio when others do not.; Patient does not have to strain or struggle to hear/understand conversations; Patient does not need help with preparing meals, transportation, shopping, taking medicine, managing finances, or other activities of daily living.; Patient does not have visual loss that interferes with daily activities; Patient reports no falls in the past 6 months. Yo Meza MD [address] [place] [address], [phone], [facility] 12/26/2023 09:56:59 02/28/2024 text/html [facility] URI Flu like SymptomsReported bypatient.Duration:sta rted 4 days ago Associated Symptoms:No fever/chills; Good oral intake; No significant muscle aches; No sweats; No congestion; No purulent nasal discharge; No sinus pressure; No cough; No wheezing; No ear pressure or fullness; No earache; No sore throat; No difficulty swallowing; No swollen glands; No chest pain with deep breath; No abdominal pain; No nausea; No vomiting; No diarrhea; No rash;Fatigue and malaise;Headache;Cough productive of yellow-green, thick sputum;Shortness of breathNotes:3 neg covid tests. No chest pain. Sick since 02/23. HARRY He has a history of the CABG to the right coronary artery as well as the aortic valve replacement but never really had symptoms from any of that. Yo Meza MD [address] [place] [address], [phone], [facility] 02/28/2024 16:39:56 06/20/2024 text/html Risk Assessment and Lifestyle Change Counseling (Medicare)Reported bypatient.Safety Risk Assessment:No grab bars in bathroom; Has rails on steps; No falls; No evidence of abuse/neglect Functional Status:Patient does not have trouble hearing the television or radio when others do not.; Patient does not have to strain or struggle to hear/understand conversations; Patient does not need help with preparing meals, transportation, shopping, taking medicine, managing finances, or other activities of daily living.; Patient does not have visual loss that interferes with daily activities; Patient reports no falls in the past 6 months. 68 yo male here for wellness. 06/2023 Had tissue valve Mitral and Aortic and 1 V CABG No CP or SOB. He is status post 2 valve repairs both the mitral and the aortic with a tissue valve as well as a one-vessel bypass to the right coronary artery.Had procedure in [place]. On lipitor and metoprolol. atorvastatin Is on Elliquis. Doing the cardio maintenance program 2x/wk and exercises at home and weights had afib/flutter 12/02/23, developed 6 months after sugery Was told has descending Aortic aneurism 3 cm. Pacer check in September- Had pacer for AV block. Pacer check showed aflutter. ElliquisHad cardioversion October and no SOB since. Seeing Dr. Hernandez urology- Had benign bladder mass. urinary frequency is better. recheck fine. PSA 2.2 11/09/23 No longer needing eyedrops after having Trabeculectomy Dr. Gibbs. 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 Goes to [employer] often- family there. Eating well. smoothie with nuts, flax seed, rare red meat. MVI, fish oil.1-2 beers a week. Exercise- Using recumbant statonary bike. Rowing, weights, planks. treadmill. Strength training, 3-4 miles cyling a day. in the house. Was studying [employer] [employer]. on [employer]. Guido harris. On line. Yo Meza MD [address] [place] [address], [phone], [facility] 06/20/2024 09:11:25
[2024-10-28 14:47] VITALS: BP 151/90; PULSE 76; RESP 19; TEMP 36.6; O2SAT 98
== END 2024-10-28 14:47 | disposition home or self-care (01) ==
PROVIDERS: Emergency Provider Emergency Medicine; PCP Family Medicine
DX: T16.2XXA Foreign body in left ear, initial encounter (principal); W44.G1XA Audio device entering into or through a natural orifice, initial encounter; Y93.9 Activity, unspecified; Y92.9 Unspecified place or not applicable; Y99.9 Unspecified external cause status
CPT/HCPCS: 99282